=== PATIENT | female | born 1995 | race African-American/Black ===

== ENCOUNTER 2016-07-26 20:37 | Emergency (ER) | payer BC, OTHER ==
--- NOTE | 2016-07-26 21:16 | ED ---
Female Urogenital HPI - General Chief complaint: Vaginal Bleeding Stated complaint: Early /Bleeding/Cramping Hx Miscarriage Time Seen by Provider: 07/26/16 21:04 Source: patient, RN notes reviewed Mode of arrival: ambulatory Limitations: no limitations - History of Present Illness Initial comments: 21-year-old female presented emergency Department chief complaint abdominal cramping, vaginal bleeding. Patient states this started yesterday. Patient states that she recently took 2 at home test and which are positive. Patient states she cannot remember the last time she had a menstrual cycle. Patient states she is A2. Patient does not have a current COMMUNITY MANAGER. Patient denies any vomiting but states she is quite nauseated. Denies any diarrhea or constipation. Patient denies fevers chills. Patient states that she feels like she is having her menstrual cycle at this time. Last Menstrual Period: 06/24/16 - Related Data Home Medications Medication Instructions Recorded Confirmed No Known Home Medications [No 01/10/16 07/26/16 Known Home Medications] Allergies Allergy/AdvReac Type Severity Reaction Status Date / Time No Known Allergies Allergy Verified 07/26/16 21:24 Review of Systems ROS Statement: Those systems with pertinent positive or pertinent negative responses have been documented in the HPI. ROS Other: All systems not noted in ROS Statement are negative. Past Medical History Past Medical History: No Reported History History of Any Multi-Drug Resistant Organisms: None Reported Past Surgical History: No Surgical Hx Reported Past Psychological History: No Psychological Hx Reported Smoking Status: Former smoker Past Alcohol Use History: None Reported Past Drug Use History: None Reported General Exam Limitations: no limitations General appearance: alert, in no apparent distress Head exam: Present: atraumatic, normocephalic, normal inspection Respiratory exam: Present: normal lung sounds bilaterally. Absent: respiratory distress, wheezes, rales, rhonchi, stridor Cardiovascular Exam: Present: regular rate, normal rhythm, normal heart sounds. Absent: systolic murmur, diastolic murmur, rubs, gallop, clicks GI/Abdominal exam: Present: soft, normal bowel sounds. Absent: distended, tenderness, guarding, rebound, rigid Back exam: Absent: CVA tenderness (R), CVA tenderness (L) Neurological exam: Present: alert, oriented X3, CN II-XII intact Skin exam: Present: warm, dry, intact, normal color. Absent: rash Course Vital Signs 07/26/16 07/26/16 20:59 22:03 Temperature 98.0 F Pulse Rate 78 74 Respiratory 18 16 Rate Blood Pressure 119/59 116/69 O2 Sat by Pulse 99 98 Oximetry Medical Decision Making - Medical Decision Making 21-year-old female presented emergency department for vaginal bleeding or early . Patient's hCG level is 546. Ultrasound shows no acute abnormality. Patient's laboratory eyes unremarkable. Patient will be discharged with repeat hCG level. Patient did not want Jose testing including HIV syphilis and hepatitis.. Patient refused pelvic exam - Lab Data Result diagrams: 07/26/16 21:42 07/26/16 21:42 Lab Results 07/26/16 07/26/16 07/26/16 Range/Units 21:42 21:42 21:42 WBC 11.4 H (3.8-10.6) k/uL RBC 4.62 (3.80-5.40) m/uL Hgb 10.9 L (11.4-16.0) gm/dL Hct 35.0 (34.0-46.0) % MCV 75.8 L (80.0-100.0) fL MCH 23.6 L (25.0-35.0) pg MCHC 31.2 (31.0-37.0) g/dL RDW 19.2 H (11.5-15.5) % Plt Count 252 (150-450) k/uL Neutrophils % 69 % Lymphocytes % 23 % Monocytes % 5 % Eosinophils % 1 % Basophils % 0 % Neutrophils # 7.9 H (1.3-7.7) k/uL Lymphocytes # 2.7 (1.0-4.8) k/uL Monocytes # 0.6 (0-1.0) k/uL Eosinophils # 0.1 (0-0.7) k/uL Basophils # 0.0 (0-0.2) k/uL Hypochromasia Moderate Anisocytosis Slight Microcytosis Moderate Sodium 140 (137-145) mmol/L Potassium 3.6 (3.5-5.1) mmol/L Chloride 103 (98-107) mmol/L Carbon Dioxide 25 (22-30) mmol/L Anion Gap 12 mmol/L BUN 11 (7-17) mg/dL Creatinine 0.68 (0.52-1.04) mg/dL Est GFR (MDRD) Af Amer >60 (>60 ml/min/1.73 sqM) Est GFR (MDRD) Non-Af >60 (>60 ml/min/1.73 sqM) Glucose 107 H (74-99) mg/dL Calcium 9.4 (8.4-10.2) mg/dL Total Bilirubin 0.4 (0.2-1.3) mg/dL AST 26 (14-36) U/L ALT 30 (9-52) U/L Alkaline Phosphatase 62 (38-126) U/L Total Protein 7.7 (6.3-8.2) g/dL Albumin 4.5 (3.5-5.0) g/dL HCG, Quant 546.6 mIU/mL Urine Color Yellow Urine Appearance Clear (Clear) Urine pH 6.5 (5.0-8.0) Ur Specific [place] 1.023 (1.001-1.035) Urine Protein Trace H (Negative) Urine Glucose (UA) Negative (Negative) Urine Ketones Negative (Negative) Urine Blood Negative (Negative) Urine Nitrate Negative (Negative) Urine Bilirubin Negative (Negative) Urine Urobilinogen <2.0 (<2.0) mg/dL Ur Leukocyte Esterase Negative (Negative) Blood Type Blood Type Recheck 07/26/16 Range/Units 21:56 WBC (3.8-10.6) k/uL RBC (3.80-5.40) m/uL Hgb (11.4-16.0) gm/dL Hct (34.0-46.0) % MCV (80.0-100.0) fL MCH (25.0-35.0) pg MCHC (31.0-37.0) g/dL RDW (11.5-15.5) % Plt Count (150-450) k/uL Neutrophils % % Lymphocytes % % Monocytes % % Eosinophils % % Basophils % % Neutrophils # (1.3-7.7) k/uL Lymphocytes # (1.0-4.8) k/uL Monocytes # (0-1.0) k/uL Eosinophils # (0-0.7) k/uL Basophils # (0-0.2) k/uL Hypochromasia Anisocytosis Microcytosis Sodium (137-145) mmol/L Potassium (3.5-5.1) mmol/L Chloride (98-107) mmol/L Carbon Dioxide (22-30) mmol/L Anion Gap mmol/L BUN (7-17) mg/dL Creatinine (0.52-1.04) mg/dL Est GFR (MDRD) Af Amer (>60 ml/min/1.73 sqM) Est GFR (MDRD) Non-Af (>60 ml/min/1.73 sqM) Glucose (74-99) mg/dL Calcium (8.4-10.2) mg/dL Total Bilirubin (0.2-1.3) mg/dL AST (14-36) U/L ALT (9-52) U/L Alkaline Phosphatase (38-126) U/L Total Protein (6.3-8.2) g/dL Albumin (3.5-5.0) g/dL HCG, Quant mIU/mL Urine Color Urine Appearance (Clear) Urine pH (5.0-8.0) Ur Specific [place] (1.001-1.035) Urine Protein (Negative) Urine Glucose (UA) (Negative) Urine Ketones (Negative) Urine Blood (Negative) Urine Nitrate (Negative) Urine Bilirubin (Negative) Urine Urobilinogen (<2.0) mg/dL Ur Leukocyte Esterase (Negative) Blood Type O Positive Blood Type Recheck No Disposition Clinical Impression: Threatened miscarriage in early Disposition: HOME SELF-CARE Condition: Stable Instructions: Threatened Miscarriage (ED) Additional Instructions: Please return to the Emergency Department if symptoms worsen or any other concerns. Time of Disposition: 23:00
[2016-07-26 21:59] LABS: Anisocytosis Slight; Appearance,Urine Clear (Clear); Basophils % (A) 0 %; Bilirubin,Urine Negative (Negative); CH 23.3; CHCM 30.9; Eosinophils # (A) 0.1 k/uL (0-0.7); Eosinophils % (A) 1 %; Glucose,Urine (UA) Negative (Negative); HDW 2.82; HGB 10.9 gm/dL (11.4-16.0); Hypochromasia Moderate; Ketones,Urine Negative (Negative); Leukocyte Esterase,Urine Negative (Negative); Luc # (Auto) 0.16; Luc % (Auto) 1; Lymphocytes # (A) 2.7 k/uL (1.0-4.8); Lymphocytes % (A) 23 %; MCH 23.6 pg (25.0-35.0); MCHC 31.2 g/dL (31.0-37.0); MCV 75.8 fL (80.0-100.0); Mean Platelet Volume 7.6; Microcytosis Moderate; Monocytes # (A) 0.6 k/uL (0-1.0); Monocytes % (A) 5 %; Neutrophils # (A) 7.9 k/uL (1.3-7.7); Neutrophils % (A) 69 %; Nitrite,Urine Negative (Negative); PH, Urine 6.5 (5.0-8.0); Protein,Urine Trace (Negative); RBC 4.62 m/uL (3.80-5.40); RDW 19.2 % (11.5-15.5); Specific Gravity,Urine 1.023 (1.001-1.035); UA Billing (MACRO vs. MICRO) CHEM; Urobilinogen,Urine <2.0 mg/dL (<2.0); WBC 11.4 k/uL (3.8-10.6); WBC (Perox) 11.99
[2016-07-26 22:09] LABS: ALT 30 U/L (9-52); AST 26 U/L (14-36); Alkaline Phosphatase 62 U/L (38-126); Anion Gap 12 mmol/L; Blood Urea Nitrogen 11 mg/dL (7-17); Calcium 9.4 mg/dL (8.4-10.2); Carbon Dioxide 25 mmol/L (22-30); Chloride 103 mmol/L (98-107); Glucose 107 mg/dL (74-99); Non-African American GFR(MDRD) >60 (>60 ml/min/1.73 sqM); Potassium 3.6 mmol/L (3.5-5.1); Sodium 140 mmol/L (137-145); Total Bilirubin 0.4 mg/dL (0.2-1.3); Total Protein 7.7 g/dL (6.3-8.2)
[2016-07-26 22:25] LABS: HCG,Quantitative Serum 546.6 mIU/mL
[2016-07-26 22:32] VITALS: RESP 16
--- NOTE | 2016-07-26 22:50 | US ---
EXAMINATION TYPE: US OB <=14 wks transvag DATE OF EXAM: 07/26/2016 10:22 PM COMPARISON: NONE CLINICAL HISTORY: Bleeding, cramping, HX of miscarriage. EXAM PERFORMED: Transvaginal (TV) and Transabdominal (TA) EXAM MEASUREMENTS: GESTATIONAL AGE / DATING Dates by LMP: (4 weeks/4 days) EDC: 03/31/2017 Dates by Current Scan: Too early to determine MATERNAL ANATOMY Uterus: 9.2 x 6.4 x 5.9 cm Right Ovary: 2.2 x 1.4 x 1.4 cm Left Ovary: 2.8 x 1.8 x 1.4 cm Post CDS / Adnexa: free fluid in posterior cul de sac, prominent vessels seen in bilateral adnexas Presence of free fluid: cul de sac Presence of corpus luteal cyst: left ovary= 1.7 x 1.2 x 1.1 cm GESTATION / SURVEY CRL: not seen MSD: not seen Yolk Sac (normal less than 6mm): not seen IUP: No IUP seen at this time Date of LMP: 06/24/2017, A2 Beta HcG (if available): not available TECHNOLOGIST IMPRESSION: No GS, YS or CRL seen. Multiple cystic lesions seen in endometrium. Endom etrium measures 1.2 cm. Left corpus luteal cyst. Free fluid in posterior cul de sac. IMPRESSION: No evidence of intrauterine or extrauterine gestational sac. No adnexal mass. There is trace free flu id in the cul-de-sac that could be physiologic..
[2016-07-26 23:09] VITALS: BP 116/68; PULSE 78; TEMP 98
== END 2016-07-26 23:09 | disposition home or self-care (01) ==
LOC: EC 20:37
DX: O20.0 Threatened abortion (principal); N83.12 Corpus luteum cyst of left ovary; Z87.891 Personal history of nicotine dependence
CPT/HCPCS: 36415; 76801; 76817; 80053; 81003; 84702; 85025; 86900; 86901; 99284

== ENCOUNTER 2016-10-02 12:04 | Emergency (ER) | payer BC, OTHER ==
[2016-10-02 12:15] VITALS: TEMP 98.5
[2016-10-02] MEDS ORDERED: SODIUM CHLORIDE 0.9% 1,000 ML IV STA ×2 (12:34)
--- NOTE | 2016-10-02 12:37 | ED ---
General Adult HPI - General Chief complaint: Vaginal Bleeding Stated complaint: Vag bleeding Time Seen by Provider: 10/02/16 12:17 Source: patient, RN notes reviewed Mode of arrival: ambulatory Limitations: no limitations - History of Present Illness Initial comments: Patient 21-year-old female who presents emergency room today with chief complaint of increased vaginal bleeding. She does admit that bleeding started 2 days ago. She states this morning there was no bleeding she was at work and bleeding became much heavier. States this time Has slowed down. She does admit some abdominal cramping lower abdomen. Patient admits that she did have a normal last menstrual cycle earlier in the month approximately 2.5-3 weeks ago. Patient denies any other complaints or symptoms +. Patient denies any recent fever, chills, shortness of breath, chest pain, back pain, nausea or vomiting, numbness or tingling, dysuria or hematuria, constipation or diarrhea, headaches or visual changes, or any other complaints. - Related Data Home Medications Medication Instructions Recorded Confirmed No Known Home Medications [No 01/10/16 07/26/16 Known Home Medications] Allergies Allergy/AdvReac Type Severity Reaction Status Date / Time No Known Allergies Allergy Verified 07/26/16 21:24 Review of Systems ROS Statement: Those systems with pertinent positive or pertinent negative responses have been documented in the HPI. ROS Other: All systems not noted in ROS Statement are negative. Past Medical History Past Medical History: No Reported History History of Any Multi-Drug Resistant Organisms: None Reported Past Surgical History: No Surgical Hx Reported Past Psychological History: No Psychological Hx Reported Smoking Status: Former smoker Past Alcohol Use History: None Reported Past Drug Use History: None Reported General Exam - General Exam Comments Initial Comments: General: The patient is awake and alert, in no distress, and does not appear acutely ill. Eye: Pupils are equal, round and reactive to light, extra-ocular movements are intact. No nystagmus. There is normal conjunctiva bilaterally. No signs of icterus. Ears, nose, mouth and throat: There are moist mucous membranes and no oral lesions. Neck: The neck is supple, there is no tenderness or JVD. Cardiovascular: There is a regular rate and rhythm. No murmur, rub or gallop is appreciated. Respiratory: Lungs are clear to auscultation, respirations are non-labored, breath sounds are equal. No wheezes, stridor, rales, or rhonchi. Gastrointestinal: Soft, non-distended, non-tender abdomen without masses or organomegaly noted. There is no rebound or guarding present. No CVA tenderness. Bowel sounds are unremarkable. Musculoskeletal: Normal ROM, no tenderness. Strength 5/5. Sensation intact. Pulses equal bilaterally 2+. Neurological: A&O x 3. CN II-XII intact, There are no obvious motor or sensory deficits. Coordination appears grossly intact. Speech is normal. Skin: Skin is warm and dry and no rashes or lesions are noted. Psychiatric: Cooperative, appropriate mood & affect, normal judgment. Limitations: no limitations Course Vital Signs 10/02/16 10/02/16 12:13 12:38 Temperature 98.5 F Pulse Rate 143 H 101 H Respiratory 20 18 Rate Blood Pressure 103/65 109/66 O2 Sat by Pulse 100 100 Oximetry Medical Decision Making - Medical Decision Making Patient reexamined at this time shows no signs of distress. Patient did have positive test. A blood test is been added with a Rh. Patient's ultrasound official report shows some moderate free fluid in the pelvis area. No sign of ovarian torsion. No evidence of IUP off of ultrasound again unofficial report. Patient's CBC currently back at this time shows hemoglobin of 9. Patient denies any lightheadedness dizziness at this time. States vaginal bleeding is decreased. States she does have a family emergency and needs to leave at this time. Patient denies that all results are not back. She states she will sign out AMA. She is been advised to return here to the emergency room if anything increases or worsens of symptoms. - Lab Data Result diagrams: 10/02/16 12:50 Lab Results 10/02/16 10/02/16 10/02/16 Range/Units 12:50 12:50 12:50 WBC 6.1 (3.8-10.6) k/uL RBC 3.83 (3.80-5.40) m/uL Hgb 9.4 L (11.4-16.0) gm/dL Hct 30.3 L (34.0-46.0) % MCV 79.3 L (80.0-100.0) fL MCH 24.5 L (25.0-35.0) pg MCHC 30.9 L (31.0-37.0) g/dL RDW 15.3 (11.5-15.5) % Plt Count 278 (150-450) k/uL Neutrophils % 66 % Lymphocytes % 24 % Monocytes % 6 % Eosinophils % 1 % Basophils % 1 % Neutrophils # 4.0 (1.3-7.7) k/uL Lymphocytes # 1.4 (1.0-4.8) k/uL Monocytes # 0.3 (0-1.0) k/uL Eosinophils # 0.1 (0-0.7) k/uL Basophils # 0.1 (0-0.2) k/uL Hypochromasia Marked Urine Color Yellow Urine Appearance Clear (Clear) Urine pH 7.0 (5.0-8.0) Ur Specific [place] 1.018 (1.001-1.035) Urine Protein Negative (Negative) Urine Glucose (UA) Negative (Negative) Urine Ketones Negative (Negative) Urine Blood Negative (Negative) Urine Nitrite Negative (Negative) Urine Bilirubin Negative (Negative) Urine Urobilinogen <2.0 (<2.0) mg/dL Ur Leukocyte Esterase Negative (Negative) Urine HCG, Qual Detected (Not Detectd) Disposition Clinical Impression: Positive test Disposition: Left Against Medical Advice Condition: Undetermined Time of Disposition: 13:45
[2016-10-02 12:39] VITALS: BP 109/66; PULSE 101; RESP 18
[2016-10-02 13:17] LABS: Basophils # (A) 0.1 k/uL (0-0.2); Basophils % (A) 1 %; CH 23.9; CHCM 30.3; Eosinophils # (A) 0.1 k/uL (0-0.7); Eosinophils % (A) 1 %; HCT 30.3 % (34.0-46.0); HDW 3.39; HGB 9.4 gm/dL (11.4-16.0); Hypochromasia Marked; Luc # (Auto) 0.16; Luc % (Auto) 3; Lymphocytes # (A) 1.4 k/uL (1.0-4.8); Lymphocytes % (A) 24 %; MCH 24.5 pg (25.0-35.0); MCHC 30.9 g/dL (31.0-37.0); MCV 79.3 fL (80.0-100.0); Monocytes # (A) 0.3 k/uL (0-1.0); Monocytes % (A) 6 %; Neutrophils % (A) 66 %; RBC 3.83 m/uL (3.80-5.40); RDW 15.3 % (11.5-15.5); WBC 6.1 k/uL (3.8-10.6); WBC (Perox) 6.16
[2016-10-02 13:20] LABS: Appearance,Urine Clear (Clear); Bilirubin,Urine Negative (Negative); Glucose,Urine (UA) Negative (Negative); Ketones,Urine Negative (Negative); Leukocyte Esterase,Urine Negative (Negative); Nitrite,Urine Negative (Negative); Protein,Urine Negative (Negative); Specific Gravity,Urine 1.018 (1.001-1.035); UA Billing (MACRO vs. MICRO) CHEM; Urobilinogen,Urine <2.0 mg/dL (<2.0)
[2016-10-02 13:24] LABS: ALT 19 U/L (9-52); AST 24 U/L (14-36); Alkaline Phosphatase 67 U/L (38-126); Anion Gap 13 mmol/L; Blood Urea Nitrogen 11 mg/dL (7-17); Calcium 9.4 mg/dL (8.4-10.2); Carbon Dioxide 25 mmol/L (22-30); Chloride 105 mmol/L (98-107); Glucose 94 mg/dL (74-99); Non-African American GFR(MDRD) >60 (>60 ml/min/1.73 sqM); Potassium 4.4 mmol/L (3.5-5.1); Sodium 143 mmol/L (137-145); Total Bilirubin 0.3 mg/dL (0.2-1.3); Total Protein 7.7 g/dL (6.3-8.2)
--- NOTE | 2016-10-02 13:49 | US ---
EXAMINATION TYPE: US transvaginal DATE OF EXAM: 10/02/2016 1:27 PM COMPARISON: 07/26/2016 CLINICAL HISTORY: Vaginal bleeding. Pt states heavy vaginal bleeding with clots/ Pt states this is no t her normal menses TECHNIQUE: Transvaginal (TV) EXAM MEASUREMENTS: Uterus: 10.8 x 5.1 x 6.7 cm Endometrial Stripe: 2.2 cm Right Ovary: 3.1 x 2.1 x 2.5 cm Left Ovary: 3.0 x 1.9 x 1.6 cm FINDINGS: wnl 1. Uterus: Anteverted Heterogeneous 2. Endometrium: Heterogeneous, abnormally thickened, hypervascular 3. Right Ovary: wnl, dominant follicle= 1.3 cm 4. Left Ovary: wnl, dominant follicle= 1.5 cm Spectral, color and waveform doppler imaging shows good arterial and venous flow within the ovaries ; there is no evidence for ovarian torsion. 5. Bilateral Adnexa: wnl 6. Posterior cul-de-sac: wnl IMPRESSION: 1. Uterus is heterogeneous which is nonspecific and occasional be seen with diffuse fibroid change. 2. Endometrium appears thickened, hypervascular and heterogeneous. Correlate for endometrial patholog y including hyperplasia. Other endometrial processes not excluded. Correlate with beta hCG if there i s concern for . No intrauterine identified.
== END 2016-10-02 13:59 | disposition left against medical advice (07) ==
LOC: EC 12:04
DX: N93.9 Abnormal uterine and vaginal bleeding, unspecified (principal); R10.30 Lower abdominal pain, unspecified; Z87.891 Personal history of nicotine dependence
CPT/HCPCS: 36415; 76830; 80053; 81003; 81025; 84702; 85025; 86900; 86901; 87086; 93975; 96360; 99284

== ENCOUNTER 2016-12-13 16:00 | Emergency (ER) | payer OTHER ==
[2016-12-13 16:11] VITALS: TEMP 97.9
[2016-12-13] MEDS ORDERED: SODIUM CHLORIDE 0.9% 1,000 ML IV ONE (16:37)
[2016-12-13] MEDS ORDERED: KETOROLAC 30 MG/ML 1 ML VIAL IVP STA (16:37)
--- NOTE | 2016-12-13 16:41 | ED ---
Female Urogenital HPI - General Chief complaint: Vaginal Bleeding Stated complaint: Vaginal Bleeding Time Seen by Provider: 12/13/16 16:12 Source: patient, RN/MD, RN notes reviewed, old records reviewed Mode of arrival: ambulatory Limitations: no limitations - History of Present Illness Initial comments: This is a 21-year-old female presenting to the emergency Department chief complaint of severe vaginal bleeding off and on throughout the past few months. Patient reports that she had a portion in August of this year and since then her menstrual cycle had been very heavy and abnormal. Patient reports that in September she was evaluated in the emergency room and was told that she had a positive test and was bleeding at that time. Patient reports that over the past week she's been passing clots the size of her head. Patient reports that he is concerned she may be miscarrying or something else could be the cause of the inner bleeding. Patient reports that she's had no fever or chills. She reports that she does have some cramping pain in her lower back. She reports that she does not have an YARD BRAKEMAN. She states that she sometimes feels lightheaded. - Related Data Previous Rx's Medication Instructions Recorded Ferrous Sulfate [Feosol] 325 mg PO DAILY #30 tab 12/13/16 Allergies Allergy/AdvReac Type Severity Reaction Status Date / Time No Known Allergies Allergy Verified 12/13/16 16:40 Review of Systems ROS Statement: Those systems with pertinent positive or pertinent negative responses have been documented in the HPI. ROS Other: All systems not noted in ROS Statement are negative. Past Medical History Past Medical History: No Reported History History of Any Multi-Drug Resistant Organisms: None Reported Past Surgical History: No Surgical Hx Reported Past Psychological History: No Psychological Hx Reported Smoking Status: Former smoker Past Alcohol Use History: None Reported Past Drug Use History: None Reported General Exam - General Exam Comments Initial Comments: This is a 21-year-old female. No acute distress. Limitations: no limitations General appearance: alert, in no apparent distress Head exam: Present: atraumatic, normocephalic, normal inspection Eye exam: Present: normal appearance, PERRL, EOMI. Absent: scleral icterus, conjunctival injection, periorbital swelling ENT exam: Present: normal exam, mucous membranes moist Neck exam: Present: normal inspection Respiratory exam: Present: normal lung sounds bilaterally. Absent: respiratory distress, wheezes, rales, rhonchi, stridor Cardiovascular Exam: Present: regular rate, normal rhythm, normal heart sounds. Absent: systolic murmur, diastolic murmur, rubs, gallop, clicks GI/Abdominal exam: Present: soft, normal bowel sounds. Absent: distended, tenderness, guarding, rebound, rigid External exam: Present: normal external exam Speculum exam: Present: vaginal bleeding. Absent: normal speculum exam By manual exam: Present: uterine enlargement, uterine tenderness. Absent: normal by manual exam, cervical motion tenderness, adnexal tenderness, adnexal mass Extremities exam: Present: normal inspection, full ROM, normal capillary refill. Absent: tenderness, pedal edema, joint swelling, calf tenderness Back exam: Present: normal inspection Neurological exam: Present: alert, oriented X3, CN II-XII intact Psychiatric exam: Present: normal affect, normal mood Skin exam: Present: warm, dry, intact, normal color. Absent: rash Course Vital Signs 12/13/16 12/13/16 12/13/16 16:08 19:25 20:16 Temperature 97.9 F Pulse Rate 90 86 66 Respiratory 18 18 16 Rate Blood Pressure 123/66 96/55 105/56 O2 Sat by Pulse 99 100 98 Oximetry Medical Decision Making - Medical Decision Making 21-year-old female with diffuse vaginal bleeding since September 09. Patient reports that every she'll pass large clots and occasionally have some likely. Patient's hemoglobin is 8.0 at this time. Ultrasound does show diffusely thickened endometrium measuring 2.5 cm with complex fluid possibility of endometrial hyperplasia or large polyp. Correlation with 80 she is recommended. There is evidence of small amount of free fluid. Nonvisualization ovaries again correlation for the hCG is recommended to rule out ectopic . HCG is also negative. Discussed the findings with Dr. Singh was a time and consult Dr. Gregory the on-call YARD BRAKEMAN. He discussed that she needs to follow-up with her oncologist to perform the portion [place] from August. Also that if she cannot get a hold mention is to follow-up with him in the office early next week. I will place the patient on high dose iron. Discussed that she needs to return to the emergency department if any alarming signs or symptoms occur. Discussed rest and hydration. Patient understands treatment plan will comply. - Lab Data Result diagrams: 12/13/16 17:15 12/13/16 17:15 Lab Results 12/13/16 12/13/16 12/13/16 Range/Units 17:15 17:15 17:15 WBC 7.0 (3.8-10.6) k/uL RBC 3.81 (3.80-5.40) m/uL Hgb 8.0 L (11.4-16.0) gm/dL Hct 28.0 L (34.0-46.0) % MCV 73.5 L (80.0-100.0) fL MCH 21.1 L (25.0-35.0) pg MCHC 28.7 L (31.0-37.0) g/dL RDW 16.2 H (11.5-15.5) % Plt Count 271 (150-450) k/uL Neutrophils % 65 % Lymphocytes % 27 % Monocytes % 5 % Eosinophils % 1 % Basophils % 1 % Neutrophils # 4.6 (1.3-7.7) k/uL Lymphocytes # 1.9 (1.0-4.8) k/uL Monocytes # 0.3 (0-1.0) k/uL Eosinophils # 0.1 (0-0.7) k/uL Basophils # 0.0 (0-0.2) k/uL Hypochromasia Marked Poikilocytosis Slight Anisocytosis Slight Microcytosis Slight Sodium 141 (137-145) mmol/L Potassium 3.6 (3.5-5.1) mmol/L Chloride 107 (98-107) mmol/L Carbon Dioxide 23 (22-30) mmol/L Anion Gap 11 mmol/L BUN 9 (7-17) mg/dL Creatinine 0.60 (0.52-1.04) mg/dL Est GFR (MDRD) Af Amer >60 (>60 ml/min/1.73 sqM) Est GFR (MDRD) Non-Af >60 (>60 ml/min/1.73 sqM) Glucose 111 H (74-99) mg/dL Calcium 9.1 (8.4-10.2) mg/dL HCG, Quant <2.4 mIU/mL Urine Color Urine Appearance (Clear) Urine pH (5.0-8.0) Ur Specific [place] (1.001-1.035) Urine Protein (Negative) Urine Glucose (UA) (Negative) Urine Ketones (Negative) Urine Blood (Negative) Urine Nitrite (Negative) Urine Bilirubin (Negative) Urine Urobilinogen (<2.0) mg/dL Ur Leukocyte Esterase (Negative) Urine RBC (0-5) /hpf Urine WBC (0-5) /hpf Ur Squamous Epith Cells (0-4) /hpf Calcium Oxalate Crystal (None) /hpf Urine Mucus (None) /hpf Urine HCG, Qual (Not Detectd) Trichomonas Ag (Rapid) (Negative) Blood Type O Positive Blood Type Recheck No 12/13/16 12/13/16 12/13/16 Range/Units 18:00 18:00 18:00 WBC (3.8-10.6) k/uL RBC (3.80-5.40) m/uL Hgb (11.4-16.0) gm/dL Hct (34.0-46.0) % MCV (80.0-100.0) fL MCH (25.0-35.0) pg MCHC (31.0-37.0) g/dL RDW (11.5-15.5) % Plt Count (150-450) k/uL Neutrophils % % Lymphocytes % % Monocytes % % Eosinophils % % Basophils % % Neutrophils # (1.3-7.7) k/uL Lymphocytes # (1.0-4.8) k/uL Monocytes # (0-1.0) k/uL Eosinophils # (0-0.7) k/uL Basophils # (0-0.2) k/uL Hypochromasia Poikilocytosis Anisocytosis Microcytosis Sodium (137-145) mmol/L Potassium (3.5-5.1) mmol/L Chloride (98-107) mmol/L Carbon Dioxide (22-30) mmol/L Anion Gap mmol/L BUN (7-17) mg/dL Creatinine (0.52-1.04) mg/dL Est GFR (MDRD) Af Amer (>60 ml/min/1.73 sqM) Est GFR (MDRD) Non-Af (>60 ml/min/1.73 sqM) Glucose (74-99) mg/dL Calcium (8.4-10.2) mg/dL HCG, Quant mIU/mL Urine Color Yellow Urine Appearance Cloudy H (Clear) Urine pH 6.0 (5.0-8.0) Ur Specific [place] 1.035 (1.001-1.035) Urine Protein 1+ H (Negative) Urine Glucose (UA) Negative (Negative) Urine Ketones Trace H (Negative) Urine Blood Moderate H (Negative) Urine Nitrite Negative (Negative) Urine Bilirubin Negative (Negative) Urine Urobilinogen 2.0 (<2.0) mg/dL Ur Leukocyte Esterase Moderate H (Negative) Urine RBC 60 H (0-5) /hpf Urine WBC 10 H (0-5) /hpf Ur Squamous Epith Cells 5 H (0-4) /hpf Calcium Oxalate Crystal Few H (None) /hpf Urine Mucus Many H (None) /hpf Urine HCG, Qual Not Detected (Not Detectd) Trichomonas Ag (Rapid) Negative (Negative) Blood Type Blood Type Recheck - Radiology Data Radiology results: report reviewed Diffuse and uniformly thickened endometrium measuring 2.5 cm with surrounding complex fluid abutting the junctional zone. Direct visualization and sampling are recommended as differential diagnosis for endometrial mass/carcinoma/ endometrial hyperplasia or large endometrial polyp. Correlation with beta hCG recommended for a premenopausal female. Additionally evaluation for cervical stenosis is recommended as intra-abdominal content may represent evolution of repeated hemorrhage/different phases of blood products. Small amount of free fluid. Nonvisualization of the ovaries again correlation patient is recommended to rule out ectopic . Disposition Clinical Impression: Menorrhagia with irregular cycle Disposition: HOME SELF-CARE Condition: Good Instructions: Menstruation (ED) Additional Instructions: Patient advised to take the iron supplements. Follow-up with your primary care physician and the physician in [place] who initially deviated the [facility] so. Patient also should call Dr. Gregory if he cannot get a hold of your [place] physician on Saturday. Return to the emergency department if any alarming signs or symptoms occur. Prescriptions: Ferrous Sulfate [Feosol] 325 mg PO DAILY #30 tab Referrals: None,Stated [Primary Care Provider] - 1-2 days Caleb Sanchez DO [Doctor of Osteopathic Medicine] - 1-2 days Time of Disposition: 20:06
[2016-12-13] MEDS ORDERED: ACETAMINOPHEN TAB 500 MG TAB PO STA (17:30)
--- NOTE | 2016-12-13 18:15 | US ---
EXAMINATION TYPE: US transvaginal DATE OF EXAM: 12/13/2016 COMPARISON: US CLINICAL HISTORY: pain. Heavy bleeding and pelvic cramping x couple months, 3, para 1, miscar riage 1, 1 TECHNIQUE: Transvaginal (TV) Date of LMP: Patient unsure EXAM MEASUREMENTS: Uterus: 11.5 x 5.7 x 6.8 cm Endometrial Stripe: 3.9 cm Right Ovary: not seen Left Ovary: not seen 1. Uterus: anteverted, enlarged at 11.5cm 2. Endometrium: thickened at 3.9cm with septated fluid within and a 7.0 x 2.5 x 3.6cm hypoechoic non -vascular area within endo 3. Right Ovary: not seen 4. Left Ovary: not seen 5. Bilateral Adnexa: wnl 6. Posterior cul-de-sac: small amount of free fluid Patient in a lot of pain during exam, non-visualization of bilateral ovaries and limited evaluation of bilateral adnexa due to patient unable to withstand the pressure of transvaginal probe. IMPRESSION: 1. Diffuse and uniformly thickened endometrium measuring up to 2.5 cm with surrounding complex fluid abutting the junctional zone. Direct visualization and sampling are recommended as differential diagn osis is for endometrial mass/carcinoma, endometrial hyperplasia or large endometrial polyp. Correlati on with beta hCG's recommended in this premenopausal female. Additionally evaluation for cervical mimi nosis is recommended as intraendometrial contents may represent evolution of repeated hemorrhage/diff erent phases of blood products. 2. Small amount of free fluid. 3. Nonvisualization of the ovaries. Again correlation with beta hCG is recommended to rule out ectopi c .
[2016-12-13 18:22] LABS: Appearance,Urine Cloudy (Clear); Bilirubin,Urine Negative (Negative); Calcium Oxalate Crystals,Urine Few /hpf; Glucose,Urine (UA) Negative (Negative); Ketones,Urine Trace (Negative); Leukocyte Esterase,Urine Moderate (Negative); Mucus,Urine Many /hpf; Nitrite,Urine Negative (Negative); Particle Count 9069; Protein,Urine 1+ (Negative); RBC,Urine 60 /hpf (0-5); Specific Gravity,Urine 1.035 (1.001-1.035); Squamous Epithelial Cell,Urine 5 /hpf (0-4); UA Billing (MACRO vs. MICRO) MICRO; WBC,Urine 10 /hpf (0-5)
[2016-12-13] MEDS ORDERED: MORPHINE SULFATE 4 MG/ML SYRINGE IVP STA (18:47)
[2016-12-13 18:52] LABS: Anisocytosis Slight; Basophils % (A) 1 %; CH 20.6; CHCM 28.1; Eosinophils # (A) 0.1 k/uL (0-0.7); Eosinophils % (A) 1 %; HDW 3.51; Hypochromasia Marked; Luc # (Auto) 0.18; Luc % (Auto) 3; Lymphocytes # (A) 1.9 k/uL (1.0-4.8); Lymphocytes % (A) 27 %; MCH 21.1 pg (25.0-35.0); MCHC 28.7 g/dL (31.0-37.0); MCV 73.5 fL (80.0-100.0); Mean Platelet Volume 6.9; Microcytosis Slight; Monocytes # (A) 0.3 k/uL (0-1.0); Monocytes % (A) 5 %; Neutrophils # (A) 4.6 k/uL (1.3-7.7); Neutrophils % (A) 65 %; Poikilocytosis Slight; RBC 3.81 m/uL (3.80-5.40); RDW 16.2 % (11.5-15.5); WBC (Perox) 7.24
[2016-12-13 19:00] LABS: Anion Gap 11 mmol/L; Blood Urea Nitrogen 9 mg/dL (7-17); Calcium 9.1 mg/dL (8.4-10.2); Carbon Dioxide 23 mmol/L (22-30); Chloride 107 mmol/L (98-107); Glucose 111 mg/dL (74-99); Non-African American GFR(MDRD) >60 (>60 ml/min/1.73 sqM); Potassium 3.6 mmol/L (3.5-5.1); Sodium 141 mmol/L (137-145)
[2016-12-13 19:17] LABS: HCG,Quantitative Serum <2.4 mIU/mL
[2016-12-13 20:17] VITALS: BP 105/56; PULSE 66; RESP 16
== END 2016-12-13 20:16 | disposition home or self-care (01) ==
LOC: EC 16:00
DX: N92.6 Irregular menstruation, unspecified (principal); Z53.20 Procedure and treatment not carried out because of patient's decision for unspecified reasons; Z87.891 Personal history of nicotine dependence
CPT/HCPCS: 36415; 76830; 80048; 81001; 81025; 84702; 85025; 86900; 86901; 87070; 87205; 87491; 87591; 87808; 96360; 99285

== ENCOUNTER 2016-12-21 11:28 | Day surgery (SDC) | payer OTHER ==
[2016-12-20 09:06] VITALS: BMI 21.5
[~2016-12-21 11:28] MED LIST: DEXAMETHASONE SOD PHOSPHATE 10 MG/ML 1 ML VIAL IV ONE; LACTATED RINGERS 1,000 ML IV SCH; LIDOCAINE 1% 20 ML VIAL (10MG/ML) FOR IV START INTRADERMA PRN; MIDAZOLAM 2 MG/2 ML VIAL IV PRN; ONDANSETRON 4 MG/2 ML VIAL IVP ONE; Pre Op ABX Message 1 EACH MISC MISCELLANE ONE; SCOPOLAMINE 1.5MG/72HR PATCH TRANSDERM ONE
[2016-12-21] MEDS ORDERED: LACTATED RINGERS 1,000 ML IV ONE (12:09)
--- NOTE | 2016-12-21 12:22 | P.HPOB ---
History of Present Illness H&P Date: 12/21/16 Chief Complaint: Menorrhagia following elective Patient is a 24-year-old female who had a medical in August. Since that time she's had persistent heavy vaginal bleeding with very large clots. Some for clots have been in the area of grapefruit or slightly larger. This is been going on estrogen see noted for almost 4 months. Her hemoglobin is low approximately 8. She is on iron supplement for same. She did not notify the place where she had the elective AB and is unclear if there is still residual tissue that is present. Betas initially remained elevated for a while her last baby hCG was negative. She is scheduled for a D&C with hysteroscopy to rule out other forms of pathology and hopefully slow her bleeding down significantly. Have her back in the office in approximately 1 week to 10 days and will plan to decide long-term treatment plan at that point. Risks/benefits/ alternatives to this procedure were discussed with the patient in detail and all questions are answered for her prior to proceeding to the operating room. On physical exam vital signs are stable and afebrile. Heart regular, lungs clear, extremities without pain. Pelvic exam was unremarkable. Abdomen soft positive bowel sounds are noted. Assessment menorrhagia status post post elective AB. Plan D&C hysteroscopy Past Medical History Past Medical History: No Reported History Additional Past Medical History / Comment(s): irregular periods History of Any Multi-Drug Resistant Organisms: None Reported Past Surgical History: No Surgical Hx Reported Past Anesthesia/Blood Transfusion Reactions: No Reported Reaction Additional Past Anesthesia/Blood Transfusion Reaction / Comment(s): pt states has never received anesthesia Past Psychological History: No Psychological Hx Reported Smoking Status: Never smoker Past Alcohol Use History: None Reported Past Drug Use History: None Reported - Past Family History Mother Family Medical History: No Reported History Medications and Allergies Allergies Allergy/AdvReac Type Severity Reaction Status Date / Time No Known Allergies Allergy Verified 12/20/16 08:55 Exam Osteopathic Statement: *. No significant issues noted on an osteopathic structural exam other than those noted in the History and Physical/Consult. - Vital Signs Vital signs: Vital Signs Temp Pulse Resp BP Pulse Ox 12/21/16 11:55 98.3 F 95 18 113/71 99
[2016-12-21] MEDS ORDERED: MIDAZOLAM 2 MG/2 ML VIAL ONE (12:28)
[2016-12-21] MEDS ORDERED: LIDOCAINE 1% INJ 10MG/ML (20 ML MDV) ONE (12:28)
[2016-12-21] MEDS ORDERED: PROPOFOL 10 MG/ML 20 ML VIAL IV ONE (12:28)
[2016-12-21] MEDS ORDERED: fentaNYL (PF) 50 MCG/ML 2 ML AMP ONE (12:28)
[2016-12-21] MEDS ORDERED: KETOROLAC 30 MG/ML 1 ML VIAL ONE (12:28)
--- NOTE | 2016-12-21 12:51 | P.OP ---
Date of Procedure: 12/21/16 Preoperative Diagnosis: Menorrhagia Postoperative Diagnosis: Same Procedure(s) Performed: Dilation and curettage with hysteroscopy Implants: Anesthesia: DOMA Surgeon: Caleb Sanchez Estimated Blood Loss (ml): 3 Pathology: other (Uterine curettings) Condition: stable Disposition: same day Indications for Procedure: Operative Findings: Tissue pathology pending Description of Procedure: Patient states the operating suite where a general anesthetic was found be adequate. She was prepped and draped in the normal sterile fashion placed in dorsal lithotomy position. Initially a weighted speculum was inserted into the vagina and the anterior lip of the cervix was identified and grasped with a single-tooth tenaculum. Uterus was then sounded to 8 cm and cervix was dilated. Camera was inserted. Posterior wall of the uterus had one small area where there was tissue however the remainder of the uterus appeared unremarkable. Once this was accomplished camera was removed and sharp curettings of were obtained. All tissues collected placed on Telfa sent to pathology for evaluation. Once this was accomplished instruments were removed sponge, lap, needle counts were all correct 2 and patient was taken to the recovery room in stable and satisfactory condition. Plan - Discharge Summary New Discharge Prescriptions: New Ibuprofen [Motrin] 600 mg PO Q6HR PRN #30 tab PRN Reason: Pain No Action Ferrous Sulfate [Feosol] 325 mg PO DAILY #30 tab Discharge Medication List Ferrous Sulfate [Feosol] 325 mg PO DAILY #30 tab 12/13/16 [Rx] Ibuprofen [Motrin] 600 mg PO Q6HR PRN #30 tab 12/21/16 [Rx] Follow up Appointment(s)/Referral(s): Caleb Sanchez DO [Doctor of Osteopathic Medicine] - 10 Days Activity/Diet/Wound Care/Special Instructions: , Limit stairs and driving and pelvic rest. If any high temperatures, heavy bleeding, or severe pain call my office Discharge Disposition: HOME SELF-CARE
[2016-12-21 13:05] VITALS: RESP 16; TEMP 98
[2016-12-21] MEDS: HYDROmorphone 1 MG/ML 1 ML SYRINGE IVP PRN ×2 (13:14→13:25)
[2016-12-21 14:42] VITALS: BP 104/61; PULSE 56
== END 2016-12-21 15:26 | disposition home or self-care (01) ==
LOC: OR 11:28
PROVIDERS: ATTEND Obstetrics & Gynecology
DX: N85.9 Noninflammatory disorder of uterus, unspecified (principal); N92.0 Excessive and frequent menstruation with regular cycle; F17.200 Nicotine dependence, unspecified, uncomplicated
CPT/HCPCS: 58558; 81025; 88305; 88342; 88341; J2250; J1100; J2405; J2001; J3010; J1885; J1170; J2704

== ENCOUNTER 2017-08-30 21:03 | Emergency (ER) | payer OTHER ==
[2017-08-30 21:24] VITALS: TEMP 98
[2017-08-30] MEDS ORDERED: SODIUM CHLORIDE 0.9% 500 ML IV STA (21:54)
[2017-08-30] MEDS ORDERED: METOCLOPRAMIDE 5 MG/ML 2 ML VIAL IVP STA (21:54)
[2017-08-30] MEDS ORDERED: diphenhydrAMINE 50 MG/ML 1 ML VIAL IVP STA (21:54)
[2017-08-30] MEDS ORDERED: SODIUM CHLORIDE 0.9% 1,000 ML IV STA (21:54)
--- NOTE | 2017-08-30 21:57 | ED ---
Nausea/Vomiting/Diarrhea HPI - General Chief complaint: Nausea/Vomiting/Diarrhea Stated complaint: Syncope Time Seen by Provider: 08/30/17 21:29 Source: patient Mode of arrival: ambulatory Limitations: no limitations - History of Present Illness Initial comments: 22-year-old female patient presented to the emergency department today for evaluation of vomiting, diarrhea, and abdominal cramping 2 days. Patient states that she did have a positive home test 2 weeks ago. Last menstrual period was [id number]. Patient is A2 with two spontaneous abortions. She did have a D&C last summer for the last miscarriage. Patient states that she has been having a large amount of thick white vaginal discharge. Patient states that she has had bacterial vaginosis before and she had this similar discharge. She denies any vaginal bleeding. Denies any hematuria, dysuria, urinary frequency, urinary urgency. States that she has been continuously vomiting and unable to keep down any food or fluids. She denies any sick contacts. Patient denies any recent rash, fever, chills, shortness breath, chest pain, back pain, numbness, tingling, dizziness, weakness , headache, visual changes, or any other complaints. She has not established care. - Related Data Previous Rx's Medication Instructions Recorded Metoclopramide [Reglan] 10 mg PO Q8H #15 tab 08/31/17 Allergies Allergy/AdvReac Type Severity Reaction Status Date / Time No Known Allergies Allergy Verified 08/30/17 21:43 Review of Systems ROS Statement: Those systems with pertinent positive or pertinent negative responses have been documented in the HPI. ROS Other: All systems not noted in ROS Statement are negative. Past Medical History Past Medical History: No Reported History Additional Past Medical History / Comment(s): irregular periods History of Any Multi-Drug Resistant Organisms: None Reported Past Surgical History: No Surgical Hx Reported Past Anesthesia/Blood Transfusion Reactions: No Reported Reaction Additional Past Anesthesia/Blood Transfusion Reaction / Comment(s): pt states has never received anesthesia Past Psychological History: No Psychological Hx Reported Smoking Status: Never smoker Past Alcohol Use History: None Reported Past Drug Use History: None Reported - Past Family History Mother Family Medical History: No Reported History General Exam Limitations: no limitations General appearance: alert, in no apparent distress, other (Social well-developed , well-nourished adult female patient in no acute distress. Vital signs upon presentation are temperature 98.0F, pulse 90, respirations 18, blood pressure 130/80, pulse ox 98% on room air.) Eye exam: Present: normal appearance, PERRL, EOMI. Absent: scleral icterus, conjunctival injection, periorbital swelling ENT exam: Present: normal exam, normal oropharynx, mucous membranes moist Respiratory exam: Present: normal lung sounds bilaterally. Absent: respiratory distress, wheezes, rales, rhonchi, stridor Cardiovascular Exam: Present: regular rate, normal rhythm, normal heart sounds. Absent: systolic murmur, diastolic murmur, rubs, gallop, clicks GI/Abdominal exam: Present: soft, normal bowel sounds. Absent: distended, tenderness, guarding, rebound, rigid External exam: Present: normal external exam Speculum exam: Present: vaginal discharge (Thin white vaginal discharge). Absent: normal speculum exam, cervical discharge, vaginal bleeding By manual exam: Present: normal by manual exam Back exam: Present: normal inspection. Absent: CVA tenderness (R), CVA tenderness (L) Neurological exam: Present: alert, oriented X3, CN II-XII intact Psychiatric exam: Present: normal affect, normal mood Skin exam: Present: warm, dry, intact, normal color. Absent: rash Course Vital Signs 08/30/17 08/31/17 08/31/17 21:22 00:38 02:15 Temperature 98 F 98 F Pulse Rate 90 87 85 Respiratory 18 20 16 Rate Blood Pressure 130/80 135/78 110/67 O2 Sat by Pulse 98 98 99 Oximetry 08/31/17 04:03 Temperature Pulse Rate 93 Respiratory 17 Rate Blood Pressure 110/54 O2 Sat by Pulse 99 Oximetry - Reevaluation(s) Reevaluation #1: 08/31/17 02:03 Patient has received 2 L of normal saline, Reglan, Benadryl, and vitamin B6 via IV for vomiting. Patient continues to have vomiting. She did attempt to eat crackers and have ice chips however she was unable to hold this down. We will give her a liter of the dextrose 5% with 0.45 normal saline. We will evaluate her after this is complete. Medical Decision Making - Medical Decision Making 22-year-old female patient presented to the emergency department today for complaints of vomiting and diarrhea 2 days. Physical examination is unremarkable. Patient is 7 weeks . We did administer IV Reglan and Benadryl, patient continued to have vomiting after this. We gave vitamin B6 through the IV. Patient continued to feel nauseous and unable to hold down any crackers or water. Patient was given 2 L of D5 0.45. She does feel somewhat better after receiving this. She was able to hold down Jell-O. She'll be given an additional dose of Reglan and discharged home. She is instructed to follow-up with her OB for reevaluation as soon as possible. She will be given a prescription for reglan. She is instructed to follow-up with her primary care physician for recheck in 1-2 days. She is instructed to return here immediate for any new, worsening, or concerning symptoms. She verbalizes understanding and agrees with this plan. - Lab Data Result diagrams: 08/30/17 22:12 08/30/17 22:12 Lab Results 08/30/17 08/30/17 08/30/17 Range/Units 22:12 22:12 22:13 WBC 11.8 H (3.8-10.6) k/uL RBC 4.84 (3.80-5.40) m/uL Hgb 12.4 (11.4-16.0) gm/dL Hct 41.2 (34.0-46.0) % MCV 85.1 (80.0-100.0) fL MCH 25.7 (25.0-35.0) pg MCHC 30.2 L (31.0-37.0) g/dL RDW 17.5 H (11.5-15.5) % Plt Count 261 (150-450) k/uL Neutrophils % 78 % Lymphocytes % 16 % Monocytes % 5 % Eosinophils % 1 % Basophils % 0 % Neutrophils # 9.2 H (1.3-7.7) k/uL Lymphocytes # 1.9 (1.0-4.8) k/uL Monocytes # 0.6 (0-1.0) k/uL Eosinophils # 0.1 (0-0.7) k/uL Basophils # 0.0 (0-0.2) k/uL Anisocytosis Slight Sodium 138 (137-145) mmol/L Potassium 3.7 (3.5-5.1) mmol/L Chloride 103 (98-107) mmol/L Carbon Dioxide 22 (22-30) mmol/L Anion Gap 13 mmol/L BUN 7 (7-17) mg/dL Creatinine 0.52 (0.52-1.04) mg/dL Est GFR (MDRD) Af Amer >60 (>60 ml/min/1.73 sqM) Est GFR (MDRD) Non-Af >60 (>60 ml/min/1.73 sqM) Glucose 82 (74-99) mg/dL Calcium 10.1 (8.4-10.2) mg/dL Total Bilirubin 0.5 (0.2-1.3) mg/dL AST 18 (14-36) U/L ALT 24 (9-52) U/L Alkaline Phosphatase 64 (38-126) U/L Total Protein 7.3 (6.3-8.2) g/dL Albumin 4.2 (3.5-5.0) g/dL Amylase 70 (30-110) U/L Lipase 36 (23-300) U/L HCG, Quant 77237.3 mIU/mL Urine Color Yellow Urine Appearance Cloudy H (Clear) Urine pH 6.0 (5.0-8.0) Ur Specific [place] 1.028 (1.001-1.035) Urine Protein 1+ H (Negative) Urine Glucose (UA) Negative (Negative) Urine Ketones 4+ H (Negative) Urine Blood Negative (Negative) Urine Nitrite Negative (Negative) Urine Bilirubin Negative (Negative) Urine Urobilinogen 2.0 (<2.0) mg/dL Ur Leukocyte Esterase Moderate H (Negative) Urine RBC 2 (0-5) /hpf Urine WBC 5 (0-5) /hpf Ur Squamous Epith Cells 18 H (0-4) /hpf Urine Mucus Many H (None) /hpf Trichomonas Ag (Rapid) (Negative) 08/31/17 Range/Units 01:44 WBC (3.8-10.6) k/uL RBC (3.80-5.40) m/uL Hgb (11.4-16.0) gm/dL Hct (34.0-46.0) % MCV (80.0-100.0) fL MCH (25.0-35.0) pg MCHC (31.0-37.0) g/dL RDW (11.5-15.5) % Plt Count (150-450) k/uL Neutrophils % % Lymphocytes % % Monocytes % % Eosinophils % % Basophils % % Neutrophils # (1.3-7.7) k/uL Lymphocytes # (1.0-4.8) k/uL Monocytes # (0-1.0) k/uL Eosinophils # (0-0.7) k/uL Basophils # (0-0.2) k/uL Anisocytosis Sodium (137-145) mmol/L Potassium (3.5-5.1) mmol/L Chloride (98-107) mmol/L Carbon Dioxide (22-30) mmol/L Anion Gap mmol/L BUN (7-17) mg/dL Creatinine (0.52-1.04) mg/dL Est GFR (MDRD) Af Amer (>60 ml/min/1.73 sqM) Est GFR (MDRD) Non-Af (>60 ml/min/1.73 sqM) Glucose (74-99) mg/dL Calcium (8.4-10.2) mg/dL Total Bilirubin (0.2-1.3) mg/dL AST (14-36) U/L ALT (9-52) U/L Alkaline Phosphatase (38-126) U/L Total Protein (6.3-8.2) g/dL Albumin (3.5-5.0) g/dL Amylase (30-110) U/L Lipase (23-300) U/L HCG, Quant mIU/mL Urine Color Urine Appearance (Clear) Urine pH (5.0-8.0) Ur Specific [place] (1.001-1.035) Urine Protein (Negative) Urine Glucose (UA) (Negative) Urine Ketones (Negative) Urine Blood (Negative) Urine Nitrite (Negative) Urine Bilirubin (Negative) Urine Urobilinogen (<2.0) mg/dL Ur Leukocyte Esterase (Negative) Urine RBC (0-5) /hpf Urine WBC (0-5) /hpf Ur Squamous Epith Cells (0-4) /hpf Urine Mucus (None) /hpf Trichomonas Ag (Rapid) Negative (Negative) - Radiology Data Radiology results: report reviewed, image reviewed Ultrasound was obtained to evaluate the fetus. Report was reviewed in its entirety. Heart rate was 151. Impression by Dr. Cain shows gestational age is 7 weeks 1 day. Estimated date of delivery is 04/17/2018. I see no complicating process. Disposition Clinical Impression: Hyperemesis gravidarum Disposition: HOME SELF-CARE Condition: Good Instructions: Hyperemesis Gravidarum (ED), Acute Nausea and Vomiting (ED) Additional Instructions: Start with clear liquid diet and advance as tolerated. Take medications as directed. Follow up with your OB as soon as possible. Return here immediately for any new, worsening, or concerning symptoms. Prescriptions: Metoclopramide [Reglan] 10 mg PO Q8H #15 tab Referrals: None,Stated [Primary Care Provider] - 1-2 days Time of Disposition: 04:10
[2017-08-30 22:22] LABS: Anisocytosis Slight; Basophils % (A) 0 %; Eosinophils # (A) 0.1 k/uL (0-0.7); Eosinophils % (A) 1 %; HCT 41.2 % (34.0-46.0); HGB 12.4 gm/dL (11.4-16.0); Lymphocytes # (A) 1.9 k/uL (1.0-4.8); Lymphocytes % (A) 16 %; MCH 25.7 pg (25.0-35.0); MCHC 30.2 g/dL (31.0-37.0); MCV 85.1 fL (80.0-100.0); Mean Platelet Volume 6.7; Monocytes # (A) 0.6 k/uL (0-1.0); Monocytes % (A) 5 %; Neutrophils # (A) 9.2 k/uL (1.3-7.7); Neutrophils % (A) 78 %; Platelet Count 261 k/uL (150-450); RBC 4.84 m/uL (3.80-5.40); RDW 17.5 % (11.5-15.5); WBC 11.8 k/uL (3.8-10.6)
[2017-08-30 22:28] LABS: ALT 24 U/L (9-52); AST 18 U/L (14-36); Albumin 4.2 g/dL (3.5-5.0); Alkaline Phosphatase 64 U/L (38-126); Amylase 70 U/L (30-110); Anion Gap 13 mmol/L; Blood Urea Nitrogen 7 mg/dL (7-17); Calcium 10.1 mg/dL (8.4-10.2); Carbon Dioxide 22 mmol/L (22-30); Chloride 103 mmol/L (98-107); Glucose 82 mg/dL (74-99); Lipase 36 U/L (23-300); Potassium 3.7 mmol/L (3.5-5.1); Sodium 138 mmol/L (137-145); Total Bilirubin 0.5 mg/dL (0.2-1.3); Total Protein 7.3 g/dL (6.3-8.2)
[2017-08-30 22:32] LABS: Appearance,Urine Cloudy (Clear); Bilirubin,Urine Negative (Negative); Blood,Urine Negative (Negative); Color,Urine Yellow; Glucose,Urine (UA) Negative (Negative); Ketones,Urine 4+ (Negative); Leukocyte Esterase,Urine Moderate (Negative); Mucus,Urine Many /hpf; Nitrite,Urine Negative (Negative); Protein,Urine 1+ (Negative); RBC,Urine 2 /hpf (0-5); Specific Gravity,Urine 1.028 (1.001-1.035); Squamous Epithelial Cell,Urine 18 /hpf (0-4); WBC,Urine 5 /hpf (0-5)
--- NOTE | 2017-08-30 22:47 | US ---
EXAMINATION TYPE: US OB <= 14 wk fetus DATE OF EXAM: 08/30/2017 COMPARISON: NONE CLINICAL HISTORY: Pain. Nausea, vomiting, no bleeding EXAM PERFORMED: Transabdominal (TA) EXAM MEASUREMENTS: GESTATIONAL AGE / DATING Dates by LMP: (7 weeks/3 days) EDC: 04/15/2018 Dates by Current Scan for: (7 weeks/1 days) EDC: 04/17/2018 MATERNAL ANATOMY Uterus: 9.9 x 6.4 x 6.0 cm Right Ovary: 2.8 x 1.9 x 1.7 cm Left Ovary: 2.6 x 1.7 x 1.5 cm Post CDS / Adnexa: no free fluid Presence of free fluid: no Presence of corpus luteal cyst: no Presence of subchorionic bleed: no GESTATION / SURVEY CRL: 1.0 cm (7 weeks/1 days) MSD: seen, not measured Yolk Sac (normal less than 6mm): 3.2 mm Heart Rate: 151 bpm Rhythm: Normal IUP: Viable IUP Date of LMP: 07/09/2017, Beta HcG (if available): Not available at this time Single live IUP measuring 7 weeks 3 days IMPRESSION: The ultrasound gestational age is 7 weeks 1 day. The ZACHARIAH is 04/17/2018. I see no complicating process.
[2017-08-30 23:20] LABS: HCG,Quantitative Serum 81737.3 mIU/mL
[2017-08-30] MEDS ORDERED: SODIUM CHLORIDE 0.9% 500 ML IV ONE (23:22)
[2017-08-30] MEDS ORDERED: PYRIDOXINE 100 MG/ML 1 ML VIAL IVP STA (23:26)
[2017-08-31] MEDS: DEXTROSE 5%-0.45% NACL 1,000 ML IV SCH ×2 (02:02→03:06)
[2017-08-31 04:04] VITALS: BP 110/54; PULSE 93; RESP 17
[2017-08-31] MEDS ORDERED: METOCLOPRAMIDE 5 MG/ML 2 ML VIAL IVP STA (04:11)
[2017-08-31] MEDS ORDERED: diphenhydrAMINE 50 MG/ML 1 ML VIAL IVP STA (04:11)
[2017-09-02 14:36] LABS: C. trachomatis,PCR Negative (Neg,Equiv); Chlamydia trachomatis Source Cervix; N. gonorrhoeae,PCR Negative (Neg,Equiv); Neisseria Source Cervix
== END 2017-08-31 04:27 | disposition home or self-care (01) ==
LOC: EC 21:03
DX: O21.0 Mild hyperemesis gravidarum (principal); O99.89 Other specified diseases and conditions complicating pregnancy, childbirth and the puerperium; R19.7 Diarrhea, unspecified; R10.9 Unspecified abdominal pain; N89.8 Other specified noninflammatory disorders of vagina; Z3A.01 Less than 8 weeks gestation of pregnancy
CPT/HCPCS: 36415; 80053; 82150; 83690; 85025; 81001; 84702; 87808; 87491; 87591; 87070; 76801; 99284; 96374; 96375 ×2; 96376 ×2; 96361 ×2; J1200 ×2; J3415; J2765 ×2; 87205

== ENCOUNTER 2017-11-22 08:22 | Emergency (ER) | payer OTHER ==
[2017-11-22 08:30] VITALS: TEMP 97.2
[2017-11-22] MEDS ORDERED: SODIUM CHLORIDE 0.9% 1,000 ML IV STA (08:43)
--- NOTE | 2017-11-22 08:45 | ED ---
General Adult HPI - General Chief complaint: Abdominal Pain Stated complaint: Abd.pain 19 wks Time Seen by Provider: 11/22/17 08:35 Source: patient, RN notes reviewed Mode of arrival: ambulatory Limitations: no limitations - History of Present Illness Initial comments: Patient 22-year-old female who is G3, P1 one previous miscarriage, presenting today at 19 weeks with a chief complaint of increased left lower quadrant pain. Patient does admit that she's had some diarrheal it's been green in color over the last 24 hours. She states at 4 AM started having increased pain left lower quadrant. She does admit that it comes and goes describes it as a sharp pain. She does not want to take anything for the pain. Does admit to nausea and vomiting throughout the . Denies any other complaints or symptoms. Patient denies any recent fever, chills, shortness of breath, chest pain, back pain, numbness or tingling, dysuria or hematuria, constipation, headaches or visual changes, or any other complaints. - Related Data Home Medications Medication Instructions Recorded Confirmed No Known Home Medications [No 11/22/17 11/22/17 Known Home Medications] Allergies Allergy/AdvReac Type Severity Reaction Status Date / Time No Known Allergies Allergy Verified 11/22/17 08:55 Review of Systems ROS Statement: Those systems with pertinent positive or pertinent negative responses have been documented in the HPI. ROS Other: All systems not noted in ROS Statement are negative. Past Medical History Past Medical History: No Reported History Additional Past Medical History / Comment(s): irregular periods History of Any Multi-Drug Resistant Organisms: None Reported Past Surgical History: No Surgical Hx Reported Past Anesthesia/Blood Transfusion Reactions: No Reported Reaction Additional Past Anesthesia/Blood Transfusion Reaction / Comment(s): pt states has never received anesthesia Past Psychological History: No Psychological Hx Reported Smoking Status: Never smoker Past Alcohol Use History: None Reported Past Drug Use History: None Reported - Past Family History Mother Family Medical History: No Reported History General Exam - General Exam Comments Initial Comments: General: The patient is awake and alert, in no distress, and does not appear acutely ill. Eye: Pupils are equal, round and reactive to light, extra-ocular movements are intact. No nystagmus. There is normal conjunctiva bilaterally. No signs of icterus. Ears, nose, mouth and throat: There are moist mucous membranes and no oral lesions. Neck: The neck is supple, there is no tenderness or JVD. Cardiovascular: There is a regular rate and rhythm. No murmur, rub or gallop is appreciated. Respiratory: Lungs are clear to auscultation, respirations are non-labored, breath sounds are equal. No wheezes, stridor, rales, or rhonchi. Gastrointestinal: Abdomen soft on palpation. Patient does have tenderness left lower quadrant. No rebound tenderness. No guarding. No CVA tenderness. Musculoskeletal: Normal ROM, no tenderness. Strength 5/5. Sensation intact. Pulses equal bilaterally 2+. Neurological: A&O x 3. CN II-XII intact, There are no obvious motor or sensory deficits. Coordination appears grossly intact. Speech is normal. Skin: Skin is warm and dry and no rashes or lesions are noted. Psychiatric: Cooperative, appropriate mood & affect, normal judgment. Limitations: no limitations Course Vital Signs 11/22/17 11/22/17 08:26 10:10 Temperature 97.2 F L Pulse Rate 72 93 Respiratory 17 18 Rate Blood Pressure 100/58 95/54 O2 Sat by Pulse 100 98 Oximetry Medical Decision Making - Medical Decision Making Patient reexamined at this time shows no signs of distress she states she is feeling much better here in the emergency room after IV fluids. Patient states pain is resolved. Patient's ultrasound shows single IUP measuring 19 weeks 3 days. Results were discussed with patient. Labs been reviewed. Patient will be discharged follow-up with her [facility]. Advised return if any symptoms increase worsen or for any other concern. - Lab Data Result diagrams: 11/22/17 08:20 11/22/17 08:20 Lab Results 11/22/17 11/22/17 11/22/17 Range/Units 08:20 08:20 08:20 WBC 13.2 H (3.8-10.6) k/uL RBC 4.12 (3.80-5.40) m/uL Hgb 11.5 (11.4-16.0) gm/dL Hct 34.6 (34.0-46.0) % MCV 83.9 (80.0-100.0) fL MCH 28.0 (25.0-35.0) pg MCHC 33.4 (31.0-37.0) g/dL RDW 14.1 (11.5-15.5) % Plt Count 219 (150-450) k/uL Neutrophils % 80 % Lymphocytes % 14 % Monocytes % 4 % Eosinophils % 1 % Basophils % 0 % Neutrophils # 10.6 H (1.3-7.7) k/uL Lymphocytes # 1.9 (1.0-4.8) k/uL Monocytes # 0.5 (0-1.0) k/uL Eosinophils # 0.1 (0-0.7) k/uL Basophils # 0.0 (0-0.2) k/uL Sodium 136 L (137-145) mmol/L Potassium 4.0 (3.5-5.1) mmol/L Chloride 105 (98-107) mmol/L Carbon Dioxide 21 L (22-30) mmol/L Anion Gap 10 mmol/L BUN 6 L (7-17) mg/dL Creatinine 0.41 L (0.52-1.04) mg/dL Est GFR (CKD-EPI)AfAm >90 (>60 ml/min/1.73 sqM) Est GFR (CKD-EPI)NonAf >90 (>60 ml/min/1.73 sqM) Glucose 76 (74-99) mg/dL Calcium 9.2 (8.4-10.2) mg/dL Total Bilirubin 0.3 (0.2-1.3) mg/dL AST 16 (14-36) U/L ALT 18 (9-52) U/L Alkaline Phosphatase 72 (38-126) U/L Total Protein 6.6 (6.3-8.2) g/dL Albumin 3.6 (3.5-5.0) g/dL Urine Color Urine Appearance (Clear) Urine pH (5.0-8.0) Ur Specific [place] (1.001-1.035) Urine Protein (Negative) Urine Glucose (UA) (Negative) Urine Ketones (Negative) Urine Blood (Negative) Urine Nitrite (Negative) Urine Bilirubin (Negative) Urine Urobilinogen (<2.0) mg/dL Ur Leukocyte Esterase (Negative) Blood Type O Positive Blood Type Recheck No 11/22/17 Range/Units 08:20 WBC (3.8-10.6) k/uL RBC (3.80-5.40) m/uL Hgb (11.4-16.0) gm/dL Hct (34.0-46.0) % MCV (80.0-100.0) fL MCH (25.0-35.0) pg MCHC (31.0-37.0) g/dL RDW (11.5-15.5) % Plt Count (150-450) k/uL Neutrophils % % Lymphocytes % % Monocytes % % Eosinophils % % Basophils % % Neutrophils # (1.3-7.7) k/uL Lymphocytes # (1.0-4.8) k/uL Monocytes # (0-1.0) k/uL Eosinophils # (0-0.7) k/uL Basophils # (0-0.2) k/uL Sodium (137-145) mmol/L Potassium (3.5-5.1) mmol/L Chloride (98-107) mmol/L Carbon Dioxide (22-30) mmol/L Anion Gap mmol/L BUN (7-17) mg/dL Creatinine (0.52-1.04) mg/dL Est GFR (CKD-EPI)AfAm (>60 ml/min/1.73 sqM) Est GFR (CKD-EPI)NonAf (>60 ml/min/1.73 sqM) Glucose (74-99) mg/dL Calcium (8.4-10.2) mg/dL Total Bilirubin (0.2-1.3) mg/dL AST (14-36) U/L ALT (9-52) U/L Alkaline Phosphatase (38-126) U/L Total Protein (6.3-8.2) g/dL Albumin (3.5-5.0) g/dL Urine Color Yellow Urine Appearance Clear (Clear) Urine pH 7.5 (5.0-8.0) Ur Specific [place] 1.016 (1.001-1.035) Urine Protein Trace H (Negative) Urine Glucose (UA) Negative (Negative) Urine Ketones Negative (Negative) Urine Blood Negative (Negative) Urine Nitrite Negative (Negative) Urine Bilirubin Negative (Negative) Urine Urobilinogen <2.0 (<2.0) mg/dL Ur Leukocyte Esterase Negative (Negative) Blood Type Blood Type Recheck Disposition Clinical Impression: Abdominal pain in Disposition: HOME SELF-CARE Condition: Good Instructions: Abdominal Pain in (ED) Additional Instructions: Please use medication as discussed. Please follow-up with [facility] in the next 2 days. Please return to emergency room if the symptoms increase or worsen or for any other concerns. Is patient prescribed a controlled substance at d/c from ED?: No Referrals: Caleb Sanchez DO [Primary Care Provider] - 1-2 days Time of Disposition: 10:31
[2017-11-22 09:12] LABS: Basophils % (A) 0 %; Eosinophils # (A) 0.1 k/uL (0-0.7); Eosinophils % (A) 1 %; HCT 34.6 % (34.0-46.0); HGB 11.5 gm/dL (11.4-16.0); Lymphocytes # (A) 1.9 k/uL (1.0-4.8); Lymphocytes % (A) 14 %; MCHC 33.4 g/dL (31.0-37.0); MCV 83.9 fL (80.0-100.0); Mean Platelet Volume 8.2; Monocytes # (A) 0.5 k/uL (0-1.0); Monocytes % (A) 4 %; Neutrophils # (A) 10.6 k/uL (1.3-7.7); Neutrophils % (A) 80 %; Platelet Count 219 k/uL (150-450); RBC 4.12 m/uL (3.80-5.40); RDW 14.1 % (11.5-15.5); WBC 13.2 k/uL (3.8-10.6)
[2017-11-22 09:13] LABS: Appearance,Urine Clear (Clear); Bilirubin,Urine Negative (Negative); Blood,Urine Negative (Negative); Color,Urine Yellow; Glucose,Urine (UA) Negative (Negative); Ketones,Urine Negative (Negative); Leukocyte Esterase,Urine Negative (Negative); Nitrite,Urine Negative (Negative); PH, Urine 7.5 (5.0-8.0); Protein,Urine Trace (Negative); Specific Gravity,Urine 1.016 (1.001-1.035); Urobilinogen,Urine <2.0 mg/dL (<2.0)
[2017-11-22 09:39] LABS: ALT 18 U/L (9-52); AST 16 U/L (14-36); Albumin 3.6 g/dL (3.5-5.0); Alkaline Phosphatase 72 U/L (38-126); Anion Gap 10 mmol/L; Blood Urea Nitrogen 6 mg/dL (7-17); Calcium 9.2 mg/dL (8.4-10.2); Carbon Dioxide 21 mmol/L (22-30); Chloride 105 mmol/L (98-107); Glucose 76 mg/dL (74-99); Sodium 136 mmol/L (137-145); Total Bilirubin 0.3 mg/dL (0.2-1.3); Total Protein 6.6 g/dL (6.3-8.2)
--- NOTE | 2017-11-22 09:57 | US ---
EXAMINATION TYPE: US OB >= 14 wk fetus DATE OF EXAM: 11/22/2017 COMPARISON: US CLINICAL HISTORY: PainPt states LLQ pain that started this AM, denies bleeding TECHNIQUE: GESTATIONAL AGE / DATING Physician Established: (19 weeks/3 days) EDC: 04/15/2018 Dates by LMP: (19 weeks/3 days) EDC: 04/15/2018 Dates by First Scan: (19 weeks/1 days) EDC: 04/17/2018 Dates by Current Scan: (19 weeks/1 days) EDC: 04/17/2018 SURVEY IUP: Single PLACENTA: Posterior PREVIA: No Previa BRYAN: 9.6 cm Slightly low CERVICAL LENGTH (transabdominal: norm > 3.0cm): 4.0 cm BIOMETRY PRESENTATION: Vertex BPD: 4.4 cm 19 weeks / 2 days HC: 16.7 cm 19 weeks / 3 days AC: 13.9 cm 19 weeks / 2 days FL: 2.9 cm 19 weeks / 0 days ESTIMATED WEIGHT IN GRAMS: 279 grams ESTIMATED WEIGHT IN LBS/OZ: 0 lbs. 10 oz. WEIGHT PERCENTAGE BASED ON ESTABLISHED DATES: 32% HC/AC: 1.21 Normal FL/AC: 21 Normal HEART RATE: 160 bpm RHYTHM: Normal Single, viable IUP/ Slightly low BRYAN/ No abnormality visualized to account for pt's symptoms IMPRESSION: Single viable intrauterine of 19 weeks 3 days with a heart rate of 160 bpm. See above enedelia patel BRYAN measurement. Follow-up exam on a short-term basis as clinically warranted.
[2017-11-22 10:11] VITALS: BP 95/54; PULSE 93; RESP 18
== END 2017-11-22 10:37 | disposition home or self-care (01) ==
LOC: EC 08:22
DX: O99.89 Other specified diseases and conditions complicating pregnancy, childbirth and the puerperium (principal); R10.32 Left lower quadrant pain; R19.7 Diarrhea, unspecified; O21.9 Vomiting of pregnancy, unspecified; Z3A.19 19 weeks gestation of pregnancy
CPT/HCPCS: 36415; 76805; 80053; 81003; 85025; 86900; 86901; 87086; 96360; 96361; 99284

== ENCOUNTER 2018-04-02 20:17 | Outpatient (CLI) | payer OTHER ==
[2018-04-02 22:04] VITALS: BP 115/60; PULSE 81; RESP 16; TEMP 97.6
--- NOTE | 2018-04-11 08:46 | P.MSEPDOC ---
Presenting Problems - Arrival Data Date of Arrival on Unit: 04/02/18 Time of Arrival on Unit: 20:17 Mode of Transport: Wheelchair - Complaint OB-Reason for Admission/Chief Complaint: Possible Onset of Labor Medical History - Information : 2 Para: 1 Term: 1 : 0 Abortions: Spontaneous or Elective: 0 Number of Living Children: 1 - Gestational Age Gestational Age by ZACHARIAH (wks/days): 38 Weeks and 1 Days Review of Systems - Review of Systems Constitutional: No problems Breast: No problems ENT: No problems Cardiovascular: No problems Respiratory: No problems Gastrointestinal: No problems Genitourinary: No problems Musculoskeletal: No problems Neurological: No problems Skin: No problems Vital Signs - Temperature Temperature: 97.6 F Temperature Source: Temporal Artery Scan - Pulse Right Sitting Brachial Pulse Rate: 81 Pulse Assessment Method: Automatic Cuff - Respirations Respiratory Rate: 16 Oxygen Delivery Method: Room Air O2 Sat by Pulse Oximetry: 98 - Blood Pressure Right Arm Sitting Blood Pressure: 115/60 Blood Pressure Mean: 78 Blood Pressure Source: Automatic Cuff Medical Screen Scoring (Pre) - Cervical Exam Dilation: 4-7 cm = 2 Membranes: Intact - Uterine Contractions Frequency: N/A Duration: N/A Intensity: N/A - Maternal Vital Signs Maternal Temperature: N/A Signs of Preeclampsia: N/A Maternal Respirations: N/A - Assessment Baseline FHR: 135 Heart Rate - NICHD Category: Category I (Normal) = 0 NST: Reactive - Total Score Total Score (Pre): 2 - Level of Risk Level of Risk: Low (0-5) Physician Notification (Pre) - Physician Notified Physician Notified Date: 04/02/18 Physician Notified Time: 21:52 Physician/Practitioner Notifed:: Dr Bon Henley Order Received: Yes Disposition - Disposition OB Disposition: Discharge to home, Written follow up instructions reviewed Discharge Date: 04/02/18 Discharge Time: 21:59 I agree with the RN Medical Screening Exam: Yes Risk & Benefit of care provided described in d/c instruction: Yes Diagnosis: FALSE LABOR AT OR AFTER 37 COMPLETED WEEKS OF GESTATION
== END 2018-04-02 22:00 | disposition home or self-care (01) ==
LOC: FBPOP 20:17
PROVIDERS: ATTEND Obstetrics & Gynecology
DX: O47.1 False labor at or after 37 completed weeks of gestation (principal); Z3A.38 38 weeks gestation of pregnancy
CPT/HCPCS: 59025; G0463; 99213

== ENCOUNTER 2018-04-09 19:42 | Outpatient (CLI) | payer OTHER ==
[2018-04-09 22:10] VITALS: BP 132/60; PULSE 82; RESP 16; TEMP 97
--- NOTE | 2018-04-10 00:45 | P.MSEPDOC ---
Presenting Problems - Arrival Data Date of Arrival on Unit: 04/09/18 Time of Arrival on Unit: 19:42 Mode of Transport: Wheelchair - Complaint OB-Reason for Admission/Chief Complaint: Possible Onset of Labor Medical History - Information : 2 Para: 1 Term: 1 : 0 Abortions: Spontaneous or Elective: 0 Number of Living Children: 1 - Gestational Age Gestational Age by ZACHARIAH (wks/days): 39 Weeks and 1 Days Review of Systems - Review of Systems Constitutional: No problems Breast: No problems ENT: No problems Cardiovascular: No problems Respiratory: No problems Gastrointestinal: No problems Genitourinary: No problems Musculoskeletal: No problems Neurological: No problems Skin: No problems Vital Signs - Temperature Temperature: 97.0 F Temperature Source: Temporal Artery Scan - Pulse Right Brachial Pulse Rate: 82 Pulse Assessment Method: Automatic Cuff - Respirations Respiratory Rate: 16 Oxygen Delivery Method: Room Air O2 Sat by Pulse Oximetry: 98 - Blood Pressure Right Arm Blood Pressure: 132/60 Blood Pressure Mean: 84 Blood Pressure Source: Automatic Cuff Medical Screen Scoring (Pre) - Cervical Exam Dilation: 4-7 cm = 2 Membranes: Intact - Uterine Contractions Frequency: > or = 36 weeks =2 - Maternal Vital Signs Maternal Temperature: N/A Maternal Blood Pressure: N/A Signs of Preeclampsia: N/A Maternal Respirations: N/A - Pain Assessment Pain Location and Character: Abdomen Pain Scale Used: Numeric (1 - 10) Pain Intensity: 6 Pain Description: *Acute, Cramping Pain Frequency: Intermittent Pain Duration Units: Minutes Pain Behavior: None Exhibited Pain Aggravating Factors: Contractions - Assessment Baseline FHR: 140 Heart Rate - NICHD Category: Category I (Normal) = 0 NST: Reactive - Total Score Total Score (Pre): 4 - Level of Risk Level of Risk: Low (0-5) Physician Notification (Pre) - Physician Notified Physician Notified Date: 04/09/18 Physician Notified Time: 21:55 Physician/Practitioner Notifed:: Dr. Colon Spoke With: Dr. Colon New Order Received: Yes - Notification Comment Comment: Dr. Colon given report on pt in tr. Pt c/o. VS wnl. Reactive nst. Vag exam of. 4/70/-1 and vag exam after one hr of 4.5/70/-1. If pt wishes, pt to stay additional hour. and be checked or may be d/c to home. Pt made no change after one hr. Orders recieved to d/c to home Disposition - Disposition OB Disposition: Discharge to home Discharge Date: 04/09/18 Discharge Time: 22:00 I agree with the RN Medical Screening Exam: Yes Risk & Benefit of care provided described in d/c instruction: Yes Diagnosis: FALSE LABOR AT OR AFTER 37 COMPLETED WEEKS OF GESTATION
== END 2018-04-09 22:00 | disposition home or self-care (01) ==
LOC: FBPOP 19:42
PROVIDERS: ATTEND Obstetrics & Gynecology
DX: O47.1 False labor at or after 37 completed weeks of gestation (principal); Z3A.39 39 weeks gestation of pregnancy
CPT/HCPCS: 59025; G0463; 99213

== ENCOUNTER 2018-04-09 23:20 | Inpatient (IN) | payer OTHER ==
[2018-04-09] MEDS ORDERED: CARBOPROST TROMETHAMINE 250 MCG/ML 1 ML AMP IM PRN (23:38)
[2018-04-09] MEDS ORDERED: OXYTOCIN 10 UNIT/ML 1 ML VIAL IM PRN (23:38)
[2018-04-09] MEDS ORDERED: METHYLERGONOVINE 0.2 MG/ML 1 ML AMP IM PRN (23:38)
[2018-04-09] MEDS ORDERED: LIDOCAINE 0.5% (PF) 5 MG/ML (50 ML SDV) SQ PRN (23:38)
[2018-04-09] MEDS ORDERED: TERBUTALINE 1 MG/ML VIAL SQ PRN (23:38)
[2018-04-09] MEDS ORDERED: OXYTOCIN 20 UNITS/1000 ML NS 1,000 ML IV SCH (23:45)
[2018-04-09] MEDS ORDERED: LACTATED RINGERS 1,000 ML IV SCH (23:45)
[2018-04-09 23:55] VITALS: BMI 25.0
[2018-04-09 23:58] LABS: Basophils % (A) 0 %; Eosinophils # (A) 0.1 k/uL (0-0.7); Eosinophils % (A) 1 %; HCT 34.5 % (34.0-46.0); HGB 10.7 gm/dL (11.4-16.0); Hypochromasia Moderate; Lymphocytes # (A) 2.6 k/uL (1.0-4.8); Lymphocytes % (A) 24 %; MCH 24.1 pg (25.0-35.0); MCV 77.7 fL (80.0-100.0); Microcytosis Slight; Monocytes # (A) 0.5 k/uL (0-1.0); Monocytes % (A) 5 %; Neutrophils # (A) 7.3 k/uL (1.3-7.7); Neutrophils % (A) 67 %; Platelet Count 248 k/uL (150-450); RBC 4.44 m/uL (3.80-5.40); WBC 10.9 k/uL (3.8-10.6)
--- NOTE | 2018-04-10 00:40 | P.HPOB ---
History of Present Illness H&P Date: 04/10/18 Chief Complaint: Contractions This is a 23-year-old female 3 para 1 with an estimated date of confinement of 04/15/2018, estimated gestational age of 39-2/7 weeks, who presents to labor and delivery with complaints of contractions. She was seen in triage earlier this evening and was watched for 2 hours and remain no cervical change management expert 2 hours. She was then discharged home and came back shortly after with stronger and more regular contractions. At that time she was noted to have a bulging bag and to be about 6 cm. care has been with Dr. Sanchez. labs: Hepatitis B surface antigen-negative RPR-nonreactive Rubella-immune Blood type-O+ Antibody screen-negative The globe and-11.4 Toxoplasma-negative Random glucose-78 Obstetrical ultrasound-normal anatomy Group B streptococcus-negative Obstetrical history: . History of 1 vaginal delivery at 41 weeks. History of 1 miscarriage per patient. Review of Systems Constitutional: Denies chills, Denies fever Eyes: denies blurred vision, denies pain Ears, nose, mouth and throat: Denies headache, Denies sore throat Cardiovascular: Denies chest pain, Denies shortness of breath Respiratory: Denies cough Gastrointestinal: Reports abdominal pain (Contractions) Genitourinary: Reports pelvic pain, Reports Musculoskeletal: Reports low back pain Integumentary: Reports as per HPI Neurological: Denies numbness, Denies weakness Psychiatric: Denies anxiety, Denies depression Past Medical History Past Medical History: No Reported History Additional Past Medical History / Comment(s): irregular periods History of Any Multi-Drug Resistant Organisms: None Reported Additional Past Surgical History / Comment(s): D&C Past Anesthesia/Blood Transfusion Reactions: No Reported Reaction Additional Past Anesthesia/Blood Transfusion Reaction / Comment(s): pt states has never received anesthesia Past Psychological History: No Psychological Hx Reported Smoking Status: Never smoker Past Alcohol Use History: None Reported Past Drug Use History: None Reported - Past Family History Mother Family Medical History: No Reported History Medications and Allergies Home Medications Medication Instructions Recorded Confirmed Type Pnv No.95/Ferrous Fum/Folic AC 1 tab PO ONCE 04/09/18 04/09/18 History [ Multivitamin Tablet] Allergies Allergy/AdvReac Type Severity Reaction Status Date / Time No Known Allergies Allergy Verified 04/09/18 23:36 Exam Osteopathic Statement: *. No significant issues noted on an osteopathic structural exam other than those noted in the History and Physical/Consult. Vital Signs Temp Pulse Resp BP Pulse Ox 04/09/18 23:36 97.6 F 53 L 16 104/57 98 Intake and Output 04/09/18 04/09/18 04/10/18 14:59 22:59 06:59 Other: Weight 63.957 kg HEENT: Within normal limits Heart: Regular rate and rhythm Lungs: Clear to auscultation bilaterally Abdomen: Cervix: Approximate 5-1/2-6 cm with bulging bag per nursing staff. heart tones: Reactive Contractions: Every 2 minutes Extremities: Negative Homans Results Result Diagrams: 04/09/18 23:47 Abnormal Lab Results - Last 24 Hours (Table) 04/09/18 Range/Units 23:47 WBC 10.9 H (3.8-10.6) k/uL Hgb 10.7 L (11.4-16.0) gm/dL MCV 77.7 L (80.0-100.0) fL MCH 24.1 L (25.0-35.0) pg RDW 16.0 H (11.5-15.5) % Assessment and Plan (1) 39 weeks gestation of Current Visit: Yes Status: Acute Code(s): Z3A.39 - 39 WEEKS GESTATION OF SNOMED Code(s): 42942434 Plan: Admission for active labor. Epidural anesthesia. Expectant management.
--- NOTE | 2018-04-10 00:42 | P.PROBDLV ---
Vaginal Delivery Note - . Vaginal Delivery Note: The patient progressed fairly rapidly to complete dilation. She was unable to get an epidural due to the fast progress of her labor. She rather precipitously delivered vaginally a viable female infant in the vertex presentation with scores of 9 at 1 minute and 9 at 5 minutes. weight was 7 pounds 0.5 ounces. Cord blood was obtained secondary to O+ blood type. Placenta delivered shortly thereafter, intact, with a three-vessel cord. Uterus contracted well after oxytocin was given and uterine massage was carried out. Inspection of the perineum revealed no perineal lacerations. Estimated blood loss is approximately 150 mL. Both mother and infant are in stable condition.
[2018-04-10] MEDS ORDERED: BENZOCAINE/MENTHOL SPRAY 1 GM/SPRAY AEROSOL TOPICAL PRN (02:26)
[2018-04-10] MEDS ORDERED: diphenhydrAMINE 50 MG/ML 1 ML VIAL IVP PRN ×2 (02:26)
[2018-04-10] MEDS ORDERED: diphenhydrAMINE 50 MG CAP PO PRN (02:26)
[2018-04-10] MEDS ORDERED: ZOLPIDEM 5 MG TAB PO PRN (02:26)
[2018-04-10] MEDS ORDERED: OXYTOCIN 20 UNITS/1000 ML NS 1,000 ML IV SCH (02:26)
[2018-04-10] MEDS ORDERED: SIMETHICONE 80 MG CHEWABLE PO PRN (02:26)
[2018-04-10] MEDS ORDERED: HYDROCORTISONE 2.5% RECTAL CREAM 30 GM TUBE RECTAL PRN (02:26)
[2018-04-10] MEDS ORDERED: LANOLIN CREAM 5 GM TUBE TOPICAL PRN (02:26)
[2018-04-10] MEDS ORDERED: ACETAMINOPHEN TAB 325 MG TAB PO PRN (02:26)
[2018-04-10] MEDS ORDERED: WITCH HAZEL 1 EACH MED..PAD TOPICAL PRN (02:26)
[2018-04-10] MEDS ORDERED: diphenhydrAMINE 25 MG CAP PO PRN (02:26)
[2018-04-10] MEDS: IBUPROFEN 600 MG TAB PO PRN ×2 (04:17→11:45)
[2018-04-10] MEDS: SENNOSIDES-DOCUSATE SODIUM 1 EACH TAB PO SCH ×2 (07:57→22:46)
[2018-04-10 12:05] VITALS: RESP 16
[2018-04-11 07:51] VITALS: BP 112/67; PULSE 57; TEMP 98
[2018-04-11 07:59] LABS: Anisocytosis Slight; Basophils # (A) 0.1 k/uL (0-0.2); Basophils % (A) 1 %; Eosinophils # (A) 0.2 k/uL (0-0.7); Eosinophils % (A) 1 %; HCT 33.5 % (34.0-46.0); HGB 10.2 gm/dL (11.4-16.0); Hypochromasia Marked; Lymphocytes # (A) 3.4 k/uL (1.0-4.8); Lymphocytes % (A) 29 %; MCH 24.1 pg (25.0-35.0); MCHC 30.3 g/dL (31.0-37.0); MCV 79.5 fL (80.0-100.0); Mean Platelet Volume 6.7; Monocytes # (A) 0.5 k/uL (0-1.0); Monocytes % (A) 4 %; Neutrophils # (A) 7.2 k/uL (1.3-7.7); Neutrophils % (A) 62 %; Platelet Count 235 k/uL (150-450); RBC 4.22 m/uL (3.80-5.40); RDW 16.2 % (11.5-15.5); WBC 11.5 k/uL (3.8-10.6)
--- NOTE | 2018-04-11 08:35 | P.MSEPDOC ---
Presenting Problems - Arrival Data Date of Arrival on Unit: 04/10/18 Time of Arrival on Unit: 23:15 Mode of Transport: Wheelchair - Complaint OB-Reason for Admission/Chief Complaint: Possible Onset of Labor, Unknown Medical History - Information : 3 Para: 1 Term: 1 : 0 Abortions: Spontaneous or Elective: 1 Number of Living Children: 1 - Gestational Age Gestational Age by ZACHARIAH (wks/days): 39 Weeks and 2 Days Review of Systems - Review of Systems Constitutional: No problems Breast: No problems ENT: No problems Cardiovascular: No problems Respiratory: No problems Gastrointestinal: No problems Genitourinary: No problems Musculoskeletal: No problems Neurological: No problems Skin: No problems Vital Signs - Temperature Temperature: 98.0 F Temperature Source: Oral - Pulse Right Brachial Pulse Rate: 57 Pulse Assessment Method: Auscultation - Respirations Respiratory Rate: 16 - Blood Pressure Right Arm Blood Pressure: 112/67 Blood Pressure Mean: 82 Blood Pressure Source: Automatic Cuff Medical Screen Scoring (Pre) - Cervical Exam Dilation: 4-7 cm = 2 Membranes: Intact - Uterine Contractions Frequency: > or = 36 weeks =2 Intensity: Contraction palpated strong = 1 - Maternal Vital Signs Maternal Temperature: N/A Maternal Blood Pressure: N/A Signs of Preeclampsia: N/A Maternal Respirations: N/A - Pain Assessment Pain Location and Character: Abdomen Pain Scale Used: Numeric (1 - 10) Pain Intensity: 10 Pain Description: *Acute, Cramping Pain Frequency: Intermittent Pain Duration Units: Minutes Pain Behavior: Crying, Facial Grimacing, Vocalization Pain Aggravating Factors: Contractions - Assessment Baseline FHR: 150 Heart Rate - NICHD Category: Category I (Normal) = 0 NST: Reactive - Total Score Total Score (Pre): 5 - Level of Risk Level of Risk: Low (0-5) Physician Notification (Pre) - Physician Notified Physician Notified Date: 04/10/18 Physician Notified Time: 23:28 Physician/Practitioner Notifed:: Dr. Colon Spoke With: Dr. Colon New Order Received: Yes - Notification Comment Comment: Dr. Colon given report on pt in triage. Pt vag of /-1, bulging bag. Orders recieved to admit pt. Coming in Disposition - Disposition OB Disposition: Admit I agree with the RN Medical Screening Exam: Yes Risk & Benefit of care provided described in d/c instruction: Yes Diagnosis: ENCOUNTER FOR FULL-TERM UNCOMPLICATED DELIVERY
--- NOTE | 2018-04-11 08:48 | P.DS ---
Providers Date of admission: 04/09/18 23:29 Expected date of discharge: 04/11/18 Attending physician: Caleb Sanchez Primary care physician: Stated None Hospital Course: Patient is doing very well day 1. She's ablating, voiding, and she is tolerating her diet. She voices no complaints. Vital signs are stable and she is afebrile. Heart regular, lungs clear, extremities without pain. Abdomen is soft uterus is firm and lochia is reported to be light. Assessment day 1. Plan discharged home follow up with me in 6 weeks. Prescription for Motrin was forwarded to the pharmacy. All the questions are answered for her prior to discharge and she is stable for discharge at this time. Patient Condition at Discharge: Good Plan - Discharge Summary New Discharge Prescriptions: New Ibuprofen [Motrin] 600 mg PO Q6HR PRN #30 tab PRN Reason: Pain No Action Pnv No.95/Ferrous Fum/Folic AC [ Multivitamin Tablet] 1 tab PO ONCE Discharge Medication List Pnv No.95/Ferrous Fum/Folic AC [ Multivitamin Tablet] 1 tab PO ONCE [History] Ibuprofen [Motrin] 600 mg PO Q6HR PRN #30 tab 04/11/18 [Rx] Follow up Appointment(s)/Referral(s): Caleb Sanchez DO [Doctor of Osteopathic Medicine] - 6 Weeks Activity/Diet/Wound Care/Special Instructions: No heavy lifting, limit stairs and driving, and pelvic rest. If any high temperatures, heavy bleeding, or severe pain call my office Discharge Disposition: HOME SELF-CARE
== END 2018-04-11 13:45 | disposition home or self-care (01) | DRG 775 ==
LOC: FBPOP 23:20 → 4FBP 23:29
PROVIDERS: ADMIT Obstetrics & Gynecology; ATTEND Obstetrics & Gynecology
PROC: 10E0XZZ Delivery of Products of Conception, External Approach (ICD-10-PCS; principal; 2018-04-09)
DX: O62.3 Precipitate labor (principal); Z37.0 Single live birth; Z3A.39 39 weeks gestation of pregnancy
CPT/HCPCS: 85025

== ENCOUNTER 2018-06-18 17:10 | Emergency (ER) | payer OTHER ==
[2018-06-18] MEDS ORDERED: ACETAMINOPHEN TAB 325 MG TAB PO STA (17:46)
[2018-06-18] MEDS ORDERED: IBUPROFEN 600 MG TAB PO STA (17:46)
[2018-06-18] MEDS ORDERED: guaiFENesin-DM 600/30MG 1 EACH TAB.ER.12H PO STA (17:47)
--- NOTE | 2018-06-18 18:15 | ED ---
URI HPI - General Chief Complaint: Upper Respiratory Infection Stated Complaint: URI Time Seen by Provider: 06/18/18 17:35 Source: patient Mode of arrival: ambulatory Limitations: no limitations - History of Present Illness Initial Comments: 23-year-old female patient presents to the emergency department today for complaints of sore throat, nasal congestion, and chills. Patient states she's been sick since last evening. States and she woke up was very painful to swallow. She denies any cough at this time. States her child is sick with similar symptoms. She denies any rash, shortness of breath, ear pain, or known fever. States that she has not had a flu vaccine. She denies any significant past medical history. Denies any chance of . Patient denies any recent chest pain, abdominal pain, nausea, vomiting, diarrhea, constipation, back pain, numbness, tingling, dizziness, weakness, hematuria, dysuria, urinary urgency, urinary frequency, headache, visual changes, or any other complaints. - Related Data Previous Rx's Medication Instructions Recorded Oseltamivir [Tamiflu] 75 mg PO Q12HR #10 cap 06/18/18 guaiFENesin-DM 600/30MG [Mucinex 1 each PO Q12HR #10 tab.er.12h 06/18/18 Dm] Allergies Allergy/AdvReac Type Severity Reaction Status Date / Time No Known Allergies Allergy Verified 06/18/18 17:42 Review of Systems ROS Statement: Those systems with pertinent positive or pertinent negative responses have been documented in the HPI. ROS Other: All systems not noted in ROS Statement are negative. Past Medical History Past Medical History: No Reported History Additional Past Medical History / Comment(s): irregular periods History of Any Multi-Drug Resistant Organisms: None Reported Past Surgical History: No Surgical Hx Reported Additional Past Surgical History / Comment(s): D&C Past Anesthesia/Blood Transfusion Reactions: No Reported Reaction Additional Past Anesthesia/Blood Transfusion Reaction / Comment(s): pt states has never received anesthesia Past Psychological History: No Psychological Hx Reported Smoking Status: Never smoker Past Alcohol Use History: None Reported Past Drug Use History: None Reported - Past Family History Mother Family Medical History: No Reported History General Exam Limitations: no limitations General appearance: alert, in no apparent distress, other (This is a well- developed, well-nourished adult female patient in no acute distress. Vital signs upon presentation To 100.6F, pulse 98, respirations 20, blood pressure 101/66, pulse ox 96% on room air.) Eye exam: Present: normal appearance, PERRL, EOMI. Absent: scleral icterus, conjunctival injection, periorbital swelling ENT exam: Present: normal exam, mucous membranes moist, TM's normal bilaterally , other (No tonsillar hypertrophy or exudate). Absent: normal oropharynx ( Pharyngeal erythema) Respiratory exam: Present: normal lung sounds bilaterally. Absent: respiratory distress, wheezes, rales, rhonchi, stridor Cardiovascular Exam: Present: regular rate, normal rhythm, normal heart sounds. Absent: systolic murmur, diastolic murmur, rubs, gallop, clicks GI/Abdominal exam: Present: soft, normal bowel sounds. Absent: distended, tenderness, guarding, rebound, rigid Neurological exam: Present: alert, oriented X3, CN II-XII intact Psychiatric exam: Present: normal affect, normal mood Skin exam: Present: warm, dry, intact, normal color. Absent: rash Course Vital Signs 06/18/18 06/18/18 17:21 20:22 Temperature 100.6 F H 99.3 F Pulse Rate 98 69 Respiratory 20 16 Rate Blood Pressure 101/66 107/78 O2 Sat by Pulse 96 96 Oximetry Medical Decision Making - Medical Decision Making 23-year-old female patient presents to the emergency department today for complaints of sore throat, nasal congestion, and was found to have fever. Influenza and strep testing were negative. Patient's daughter is patient at this time was positive for influenza A, therefore we will treat with Tamiflu. She is instructed to complete his medication and full. She is instructed to increase fluids use [id number] nasal decongestants for symptom relief. She is instructed to follow-up with her primary care physician for recheck in 1- 2 days. Return parameters discussed in detail. She verbalizes understanding and agrees with this plan. - Lab Data Lab Results 06/18/18 06/18/18 Range/Units 18:13 18:13 Influenza Type A RNA Not Detected (Not Detectd) Influenza Type B (PCR) Not Detected (Not Detectd) Group A Strep Rapid Negative (Negative) - Radiology Data Radiology results: report reviewed, image reviewed Disposition Clinical Impression: Influenza A, Pharyngitis Disposition: HOME SELF-CARE Condition: Good Instructions: Pharyngitis (ED), Upper Respiratory Infection (ED) Additional Instructions: Increase fluids. Take medications as directed. Follow up with your primary care physician for recheck in 1-2 days. Return immediately for any new, worsening, or concerning symptoms. Prescriptions: guaiFENesin-DM 600/30MG [Mucinex Dm] 1 each PO Q12HR #10 tab.er.12h Oseltamivir [Tamiflu] 75 mg PO Q12HR #10 cap Is patient prescribed a controlled substance at d/c from ED?: No Referrals: Turner Hutchinson DO [STAFF PHYSICIAN] - 1-2 days Time of Disposition: 20:16
[2018-06-18] MEDS ORDERED: OSELTAMIVIR 75 MG CAP PO STA (20:11)
[2018-06-18 20:23] VITALS: BP 107/78; PULSE 69; RESP 16; TEMP 99.3
== END 2018-06-18 20:26 | disposition home or self-care (01) ==
LOC: EC 17:10
DX: J10.1 Influenza due to other identified influenza virus with other respiratory manifestations (principal)
CPT/HCPCS: 87081; 87430; 87502; 99283

== ENCOUNTER 2019-11-24 14:54 | Inpatient (IN) | payer OTHER ==
[2019-11-24] MEDS ORDERED: OXYTOCIN 10 UNIT/ML 1 ML VIAL IM PRN (14:57)
[2019-11-24] MEDS ORDERED: TERBUTALINE 1 MG/ML VIAL SQ PRN (14:57)
[2019-11-24] MEDS ORDERED: CARBOPROST TROMETHAMINE 250 MCG/ML 1 ML AMP IM PRN (14:57)
[2019-11-24] MEDS ORDERED: LIDOCAINE 0.5% (PF) 5 MG/ML (50 ML SDV) SQ PRN (14:57)
[2019-11-24] MEDS ORDERED: METHYLERGONOVINE 0.2 MG/ML 1 ML AMP IM PRN (14:57)
[2019-11-24] MEDS ORDERED: OXYTOCIN 30 UNITS/500 ML NS 30 UNIT in SALINE 1 500ML.BAG IV SCH (15:00)
[2019-11-24] MEDS: LACTATED RINGERS 1,000 ML IV SCH ×2 (15:29→17:43)
[2019-11-24 15:56] LABS: Basophils % (A) 0 %; Eosinophils # (A) 0.1 k/uL (0-0.7); Eosinophils % (A) 1 %; HCT 34.1 % (34.0-46.0); HGB 11.4 gm/dL (11.4-16.0); Lymphocytes % (A) 20 %; MCH 29.9 pg (25.0-35.0); MCHC 33.5 g/dL (31.0-37.0); MCV 89.4 fL (80.0-100.0); Mean Platelet Volume 9.3; Monocytes # (A) 0.5 k/uL (0-1.0); Monocytes % (A) 5 %; Neutrophils # (A) 7.3 k/uL (1.3-7.7); Neutrophils % (A) 72 %; Platelet Count 192 k/uL (150-450); RBC 3.81 m/uL (3.80-5.40); RDW 13.7 % (11.5-15.5); WBC 10.2 k/uL (3.8-10.6)
[2019-11-24 16:18] LABS: Poikilocytosis (M) Present; Rouleaux Present
[2019-11-24] MEDS ORDERED: fentaNYL (PF) 50 MCG/ML 5 ML AMP ONE (17:12)
[2019-11-24] MEDS ORDERED: SODIUM CHLORIDE 0.9% 100 ML BAG ONE (17:12)
[2019-11-24] MEDS ORDERED: ROPIVACAINE 5MG/ML 20ML VIAL ONE (17:12)
--- NOTE | 2019-11-24 18:20 | P.ANPRN ---
Procedure Note - Anesthesia - Epidural/Spinal Epidural Continuous Time Out Performed: Yes Date of Procedure: 11/24/19 Procedure Start Time: 17:15 Procedure Stop Time: 17:30 Location of Patient: OB Indication: Analgesia, Requested by Surgeon Sedation Type: Awake Preparation: Sterile Dressing Position: Sitting Catheter Depth at Skin (cm): 11 Catheter: Indwelling Needle Guage: 18 Injectate: Test Dose Lidocaine1.5% w/1:200,000 epi Blood Aspirated: No Pain Paresthesia on Injection Noted: No Events: Uneventful and Well Tolerated
[2019-11-24] MEDS ORDERED: WITCH HAZEL 1 EACH MED..PAD TOPICAL PRN (19:43)
[2019-11-24] MEDS ORDERED: diphenhydrAMINE 50 MG CAP PO PRN (19:43)
[2019-11-24] MEDS ORDERED: ZOLPIDEM 5 MG TAB PO PRN (19:43)
[2019-11-24] MEDS ORDERED: LANOLIN CREAM 5 GM TUBE TOPICAL PRN (19:43)
[2019-11-24] MEDS ORDERED: HYDROCORTISONE 2.5% RECTAL CREAM 30 GM TUBE RECTAL PRN (19:43)
[2019-11-24] MEDS ORDERED: diphenhydrAMINE 50 MG/ML 1 ML VIAL IVP PRN ×2 (19:43)
[2019-11-24] MEDS ORDERED: ACETAMINOPHEN TAB 325 MG TAB PO PRN (19:43)
[2019-11-24] MEDS ORDERED: BENZOCAINE/MENTHOL SPRAY 1 GM/SPRAY AEROSOL TOPICAL PRN (19:43)
[2019-11-24] MEDS ORDERED: SIMETHICONE 80 MG CHEWABLE PO PRN (19:43)
[2019-11-24] MEDS ORDERED: diphenhydrAMINE 25 MG CAP PO PRN (19:43)
[2019-11-24] MEDS ORDERED: OXYTOCIN 20 UNITS/1000 ML NS 1,000 ML IV SCH (19:45)
--- NOTE | 2019-11-24 19:49 | P.HPOB ---
History of Present Illness H&P Date: 11/24/19 Chief Complaint: Intrauterine at term: Induction of labor Patient is a 24-year-old G3 3 P2 at 39 weeks gestation who was seen in the office today noted dilated to 5 cm. She requests is admission with induction of labor due to previous precipitous delivery and failure to receive epidural she is sent over and admitted the hospital with Pitocin up dictation of labor. Artificial rupture membranes was performed and clear fluid is noted with a category 1 tracing noted. Her course has been, K by extended periods of noncompliance with her missing multiple appointments particularly early in . Aspirin to progress she did make a better effort to come to her appointments but they still had several no-shows. labs were not completed hemoglobin A1c was ultimately done in lieu of 1 hour Glucola screen which was normal. No other gross abnormalities are noted and there are no other issues per her other than a history of herpes. A pressure for acyclovir was filled and she was supposed to be taking this daily. On at least 2 occasions she related that she was put on arriving to labor and delivery she said that she did take it somewhat sporadically. Discussion prior to rupture membranes does reveal no signs or symptoms of genital warts and she has no lesions visible. She denies prodromal symptoms no itching or tingling. Expect spontaneous vaginal delivery Past Medical History Past Medical History: No Reported History Additional Past Medical History / Comment(s): irregular periods History of Any Multi-Drug Resistant Organisms: None Reported Past Surgical History: No Surgical Hx Reported Additional Past Surgical History / Comment(s): D&C Past Anesthesia/Blood Transfusion Reactions: No Reported Reaction Additional Past Anesthesia/Blood Transfusion Reaction / Comment(s): pt states has never received anesthesia Past Psychological History: No Psychological Hx Reported Smoking Status: Never smoker Past Alcohol Use History: None Reported Past Drug Use History: None Reported - Past Family History Mother Family Medical History: No Reported History Medications and Allergies Home Medications Medication Instructions Recorded Confirmed Type Pnv,Calcium 72/Iron/Folic Acid 1 tab PO DAILY 08/04/19 11/24/19 History [ Plus Tablet] Allergies Allergy/AdvReac Type Severity Reaction Status Date / Time No Known Allergies Allergy Verified 06/18/18 17:42 Exam Osteopathic Statement: *. No significant issues noted on an osteopathic structural exam other than those noted in the History and Physical/Consult. Vital Signs Temp Pulse Resp BP 11/24/19 15:18 97.0 F L 108 H 18 114/64 Intake and Output 11/24/19 11/24/19 11/24/19 06:59 14:59 22:59 Other: Weight 57.606 kg 57.606 kg - OBG Physical Exam Breast: both: normal (no masses) Abdomen: bowel sounds normal, no diffuse tenderness, no bruit present, no guarding noted, no hepatomegaly, no splenomegaly, no mass Vulva: both: normal Vagina: normal moisture, no discharge Cervix: no lesion, no discharge Uterus: normal size, normal contour Adnexa: both: normal Anus/Rectum: normal perianal skin, no rectal mass, no hemorrhoids, heme negative Results Result Diagrams: 11/24/19 15:25
--- NOTE | 2019-11-24 19:50 | P.PROBDLV ---
Vaginal Delivery Note - . Vaginal Delivery Note: Patient progressed complete and pushing with spontaneous vaginal delivery of a viable female over an intact perineum. Falling deliver the head shoulders were easily delivered with gentle downward upper traction followed by the remainder the baby. Mouth nares were then bulb suctioned and baby was placed mother's abdomen where the umbilical cord was allowed to be pulsated for 40 seconds prior to clamping and cutting. Once this was completed nursery personnel was present and assumed care. Placenta was then delivered intact and Pitocin was added to the IV. scores were 9 and 9 at one and 5 minutes just [place] and the weight was 6 lbs. 8 oz. Following delivery both mother and baby are stable.
[2019-11-25 05:25] LABS: HIV 2 AB Non-Reactive (Non-Reactive); HIV AB P24 Non-Reactive (Non-Reactive); HIV P24 AG Non-Reactive (Non-Reactive)
[2019-11-25] MEDS: SENNOSIDES-DOCUSATE SODIUM 1 EACH TAB PO SCH ×2 (05:41→07:49)
[2019-11-25 05:50] LABS: Basophils % (A) 0 %; Eosinophils # (A) 0.1 k/uL (0-0.7); Eosinophils % (A) 1 %; HCT 32.1 % (34.0-46.0); HGB 10.7 gm/dL (11.4-16.0); Lymphocytes # (A) 2.5 k/uL (1.0-4.8); Lymphocytes % (A) 23 %; MCH 29.8 pg (25.0-35.0); MCHC 33.4 g/dL (31.0-37.0); Mean Platelet Volume 9.6; Monocytes # (A) 0.6 k/uL (0-1.0); Monocytes % (A) 5 %; Neutrophils # (A) 7.6 k/uL (1.3-7.7); Neutrophils % (A) 68 %; Platelet Count 175 k/uL (150-450); RBC 3.61 m/uL (3.80-5.40); RDW 13.7 % (11.5-15.5); WBC 11.1 k/uL (3.8-10.6)
[2019-11-25] MEDS: IBUPROFEN 600 MG TAB PO PRN ×2 (07:48→15:57)
[2019-11-25 08:45] VITALS: RESP 15; TEMP 98
[2019-11-25] MEDS: LACTATED RINGERS 1,000 ML IV SCH (08:46)
--- NOTE | 2019-11-25 09:05 | P.DS ---
Providers Date of admission: 11/24/19 14:54 Expected date of discharge: 11/25/19 Attending physician: Caleb Sanchez Primary care physician: Stated None Hospital Course: Patient is doing very well day 1. She is involuting, voiding and tolerating her diet. She voices no complaints. She is requesting discharge home tonight. Vital signs are stable and she is afebrile. Heart regular, lungs clear, extremities without pain. Abdomen soft uterus is firm and lochia is reported light. Prescription for Motrin and breast pump were provided. Discharge instructions thoroughly reviewed. All questions are answered. She'll follow up with me in 6 weeks. Patient Condition at Discharge: Good Plan - Discharge Summary Discharge Rx Participant: Yes New Discharge Prescriptions: New Ibuprofen [Motrin] 600 mg PO Q6HR PRN #30 tab PRN Reason: Pain No Action Pnv,Calcium 72/Iron/Folic Acid [ Plus Tablet] 1 tab PO DAILY Discharge Medication List Pnv,Calcium 72/Iron/Folic Acid [ Plus Tablet] 1 tab PO DAILY 08/04/19 [History] Ibuprofen [Motrin] 600 mg PO Q6HR PRN #30 tab 11/25/19 [Rx] Follow up Appointment(s)/Referral(s): Caleb Sanchez DO [Doctor of Osteopathic Medicine] - 6 Weeks Activity/Diet/Wound Care/Special Instructions: No heavy lifting, limit stairs and driving, and pelvic rest. If any high temperatures, heavy bleeding, or severe pain call my office Discharge Disposition: HOME SELF-CARE
[2019-11-25 14:36] LABS: Hepatitis B Surface Antigen Non-Reactive (Non-Reactive)
[2019-11-25 16:34] VITALS: BP 110/50; PULSE 83
== END 2019-11-25 20:45 | disposition home or self-care (01) | DRG 807 ==
LOC: 4FBP 14:54
PROVIDERS: ADMIT Obstetrics & Gynecology; ATTEND Obstetrics & Gynecology
PROC: 10E0XZZ Delivery of Products of Conception, External Approach (ICD-10-PCS; principal; 2019-11-24)
PROC: 3E0R3BZ Introduction of Anesthetic Agent into Spinal Canal, Percutaneous Approach (ICD-10-PCS; principal; 2019-11-24)
PROC: 00HU33Z Insertion of Infusion Device into Spinal Canal, Percutaneous Approach (ICD-10-PCS; principal; 2019-11-24)
DX: O80 Encounter for full-term uncomplicated delivery (principal); Z37.0 Single live birth; Z3A.39 39 weeks gestation of pregnancy; Z79.899 Other long term (current) drug therapy; Z86.19 Personal history of other infectious and parasitic diseases
CPT/HCPCS: 85025; 86762; 86780; 86850; 86900; 86901; 87340; 87390

== ENCOUNTER 2020-09-12 12:51 | Emergency (ER) | payer OTHER ==
[2020-09-12 12:56] VITALS: TEMP 97.7
[2020-09-12] MEDS ORDERED: ACETAMINOPHEN TAB 500 MG TAB PO STA (13:13)
--- NOTE | 2020-09-12 13:33 | ED ---
Abdominal Pain HPI - General Chief Complaint: Abdominal Pain Stated Complaint: 19wks preg, abd pain Time Seen by Provider: 09/12/20 12:57 Source: patient Mode of arrival: ambulatory Limitations: no limitations - History of Present Illness Initial Comments: Patient is a 25-year-old female presenting to the emergency Department with complaints of left lower quadrant pain that started yesterday. Patient believes she is around 19 weeks , she took a home test which was positive but has yet to see her WEIR FISHERMAN. . WEIR FISHERMAN is Dr. Sanchez. She was on Depo-Provera when she got . She states she's been having some mild nausea throughout this , some intermittent spotting however no vaginal bleeding today. She states she feels like the left lower quadrant pain as sharp at times, crampy in nature. She denies any fever or chills. She denies any vomiting or diarrhea. She denies any dysuria. She has no further complaints at this time. - Related Data Home Medications Medication Instructions Recorded Confirmed No Known Home Medications 09/12/20 09/12/20 Allergies Allergy/AdvReac Type Severity Reaction Status Date / Time No Known Allergies Allergy Verified 09/12/20 13:32 Review of Systems ROS Statement: Those systems with pertinent positive or pertinent negative responses have been documented in the HPI. ROS Other: All systems not noted in ROS Statement are negative. Past Medical History Past Medical History: No Reported History Additional Past Medical History / Comment(s): irregular periods History of Any Multi-Drug Resistant Organisms: None Reported Past Surgical History: No Surgical Hx Reported Additional Past Surgical History / Comment(s): D&C Past Anesthesia/Blood Transfusion Reactions: No Reported Reaction Additional Past Anesthesia/Blood Transfusion Reaction / Comment(s): pt states has never received anesthesia Past Psychological History: No Psychological Hx Reported Smoking Status: Never smoker Past Alcohol Use History: None Reported Past Drug Use History: None Reported - Past Family History Mother Family Medical History: No Reported History General Exam - General Exam Comments Initial Comments: GENERAL: Patient is well-developed and well-nourished. Patient is nontoxic and in no acute distress. HEAD: Atraumatic, normocephalic. EYES: Pupils equal round and reactive to light, extraocular movements intact, sclera anicteric, conjunctiva are normal. Eyelids were unremarkable. ENT: TMs normal, nares patent, oropharynx clear without exudates. Moist mucous membranes. NECK: Normal range of motion, supple without lymphadenopathy or JVD. LUNGS: Unlabored respirations. Breath sounds clear to auscultation bilaterally and equal. No wheezes rales or rhonchi. HEART: Regular rate and rhythm without murmurs, rubs or gallops. ABDOMEN: Mild tender in the LLQ, Soft, normoactive bowel sounds. No guarding, no rebound. No masses appreciated. : Pt left ER before vaginal exam. MUSCULOSKELETAL: Normal extremities with adequate strength and normal range of motion, no pitting or edema. No clubbing or cyanosis. NEUROLOGICAL: Patient is alert and oriented x 3. Motor and sensory are also intact. Cranial nerves II through XII grossly intact. Symmetrical smile. Normal speech, normal gait. PSYCH: Normal mood, normal affect. SKIN: Warm, Dry, normal turgor, no rashes or lesions noted. Limitations: no limitations Course Vital Signs 09/12/20 09/12/20 12:52 12:55 Temperature 97.7 F Pulse Rate 81 75 Respiratory 18 16 Rate Blood Pressure 95/58 105/90 O2 Sat by Pulse 98 99 Oximetry Medical Decision Making - Medical Decision Making She is a 25-year-old female, currently approximately 19 weeks presenting for left lower quadrant pain x 1 day. She has not received any care thus far. G5, P3, the COSMETIC MAKER is Dr. Sanchez. Some mild left-sided pain on palpation, no vaginal bleeding. Labs are normal, no acute process, urine is also normal. Blood type is O+. I did do an ultrasound today which reveals a single viable IUP corresponding to approximate 19 weeks 5 days. No other acute process is seen. Heart rate is 143. After ultrasound resulted, I did go in to speak with the patient however she had already left the ER. I was also not able to do a vaginal exam secondary to patient leaving AMA. - Lab Data Result diagrams: 09/12/20 13:28 09/12/20 13:28 Lab Results 09/12/20 09/12/20 09/12/20 Range/Units 13:15 13:28 13:28 WBC 7.8 (3.8-10.6) k/uL RBC 4.09 (3.80-5.40) m/uL Hgb 12.2 (11.4-16.0) gm/dL Hct 35.2 (34.0-46.0) % MCV 85.9 (80.0-100.0) fL MCH 29.7 (25.0-35.0) pg MCHC 34.6 (31.0-37.0) g/dL RDW 13.7 (11.5-15.5) % Plt Count 184 (150-450) k/uL MPV 7.2 Neutrophils % 68 % Lymphocytes % 24 % Monocytes % 5 % Eosinophils % 1 % Basophils % 0 % Neutrophils # 5.3 (1.3-7.7) k/uL Lymphocytes # 1.9 (1.0-4.8) k/uL Monocytes # 0.4 (0-1.0) k/uL Eosinophils # 0.1 (0-0.7) k/uL Basophils # 0.0 (0-0.2) k/uL Sodium (137-145) mmol/L Potassium (3.5-5.1) mmol/L Chloride (98-107) mmol/L Carbon Dioxide (22-30) mmol/L Anion Gap mmol/L BUN (7-17) mg/dL Creatinine (0.52-1.04) mg/dL Est GFR (CKD-EPI)AfAm (>60 ml/min/1.73 sqM) Est GFR (CKD-EPI)NonAf (>60 ml/min/1.73 sqM) Glucose (74-99) mg/dL Calcium (8.4-10.2) mg/dL Total Bilirubin (0.2-1.3) mg/dL AST (14-36) U/L ALT (4-34) U/L Alkaline Phosphatase (38-126) U/L Total Protein (6.3-8.2) g/dL Albumin (3.5-5.0) g/dL Urine Color Yellow Urine Appearance Clear (Clear) Urine pH 8.0 (5.0-8.0) Ur Specific [place] 1.014 (1.001-1.035) Urine Protein Negative (Negative) Urine Glucose (UA) Negative (Negative) Urine Ketones Negative (Negative) Urine Blood Negative (Negative) Urine Nitrite Negative (Negative) Urine Bilirubin Negative (Negative) Urine Urobilinogen <2.0 (<2.0) mg/dL Ur Leukocyte Esterase Negative (Negative) Blood Type O Positive Blood Type Recheck O Pos Bld Type Recheck Status No 09/12/20 Range/Units 13:28 WBC (3.8-10.6) k/uL RBC (3.80-5.40) m/uL Hgb (11.4-16.0) gm/dL Hct (34.0-46.0) % MCV (80.0-100.0) fL MCH (25.0-35.0) pg MCHC (31.0-37.0) g/dL RDW (11.5-15.5) % Plt Count (150-450) k/uL MPV Neutrophils % % Lymphocytes % % Monocytes % % Eosinophils % % Basophils % % Neutrophils # (1.3-7.7) k/uL Lymphocytes # (1.0-4.8) k/uL Monocytes # (0-1.0) k/uL Eosinophils # (0-0.7) k/uL Basophils # (0-0.2) k/uL Sodium 132 L (137-145) mmol/L Potassium 3.7 (3.5-5.1) mmol/L Chloride 103 (98-107) mmol/L Carbon Dioxide 23 (22-30) mmol/L Anion Gap 6 mmol/L BUN 5 L (7-17) mg/dL Creatinine 0.41 L (0.52-1.04) mg/dL Est GFR (CKD-EPI)AfAm >90 (>60 ml/min/1.73 sqM) Est GFR (CKD-EPI)NonAf >90 (>60 ml/min/1.73 sqM) Glucose 111 H (74-99) mg/dL Calcium 8.9 (8.4-10.2) mg/dL Total Bilirubin 0.3 (0.2-1.3) mg/dL AST 22 (14-36) U/L ALT 11 (4-34) U/L Alkaline Phosphatase 56 (38-126) U/L Total Protein 6.6 (6.3-8.2) g/dL Albumin 3.5 (3.5-5.0) g/dL Urine Color Urine Appearance (Clear) Urine pH (5.0-8.0) Ur Specific [place] (1.001-1.035) Urine Protein (Negative) Urine Glucose (UA) (Negative) Urine Ketones (Negative) Urine Blood (Negative) Urine Nitrite (Negative) Urine Bilirubin (Negative) Urine Urobilinogen (<2.0) mg/dL Ur Leukocyte Esterase (Negative) Blood Type Blood Type Recheck Bld Type Recheck Status Disposition Clinical Impression: Abdominal pain during Disposition: Left Against Medical Advice Condition: Stable Referrals: None,Stated [Primary Care Provider] - 1-2 days Caleb Sanchez DO [Doctor of Osteopathic Medicine] - 1-2 days
[2020-09-12 13:52] LABS: Basophils % (A) 0 %; Eosinophils # (A) 0.1 k/uL (0-0.7); Eosinophils % (A) 1 %; HCT 35.2 % (34.0-46.0); HGB 12.2 gm/dL (11.4-16.0); Lymphocytes # (A) 1.9 k/uL (1.0-4.8); Lymphocytes % (A) 24 %; MCH 29.7 pg (25.0-35.0); MCHC 34.6 g/dL (31.0-37.0); MCV 85.9 fL (80.0-100.0); Mean Platelet Volume 7.2; Monocytes # (A) 0.4 k/uL (0-1.0); Monocytes % (A) 5 %; Neutrophils # (A) 5.3 k/uL (1.3-7.7); Neutrophils % (A) 68 %; Platelet Count 184 k/uL (150-450); RBC 4.09 m/uL (3.80-5.40); RDW 13.7 % (11.5-15.5); WBC 7.8 k/uL (3.8-10.6)
[2020-09-12 13:54] LABS: Appearance,Urine Clear (Clear); Bilirubin,Urine Negative (Negative); Blood,Urine Negative (Negative); Color,Urine Yellow; Glucose,Urine (UA) Negative (Negative); Ketones,Urine Negative (Negative); Leukocyte Esterase,Urine Negative (Negative); Nitrite,Urine Negative (Negative); Protein,Urine Negative (Negative); Specific Gravity,Urine 1.014 (1.001-1.035); Urobilinogen,Urine <2.0 mg/dL (<2.0)
[2020-09-12 14:09] LABS: ALT 11 U/L (4-34); AST 22 U/L (14-36); African American GFR (CKD) >90 (>60 ml/min/1.73 sqM); Albumin 3.5 g/dL (3.5-5.0); Alkaline Phosphatase 56 U/L (38-126); Anion Gap 6 mmol/L; Blood Urea Nitrogen 5 mg/dL (7-17); Calcium 8.9 mg/dL (8.4-10.2); Carbon Dioxide 23 mmol/L (22-30); Chloride 103 mmol/L (98-107); Glucose 111 mg/dL (74-99); Non-African American GFR(CKD) >90 (>60 ml/min/1.73 sqM); Potassium 3.7 mmol/L (3.5-5.1); Sodium 132 mmol/L (137-145); Total Bilirubin 0.3 mg/dL (0.2-1.3); Total Protein 6.6 g/dL (6.3-8.2)
--- NOTE | 2020-09-12 14:30 | US ---
EXAMINATION TYPE: US OB >= 14 wk fetus DATE OF EXAM: 09/12/2020 COMPARISON: None CLINICAL HISTORY: LLQ pain, 19wks, no care yetLeft pelvic pain x 1 day, 5, para 3, miscarri age 1 TECHNIQUE: Transabdominal (TA) GESTATIONAL AGE / DATING Physician Established: Not established yet Dates by LMP: Unknown Dates by First Scan: This is 1st scan Dates by Current Scan: (19 weeks/5 days) EDC: 02/01/2021 SURVEY IUP: Single PLACENTA: Posterior/Fundal PREVIA: No Previa BRYAN: 13.9 cm Normal CERVICAL LENGTH (transabdominal: norm > 3.0cm): 3.2 cm BIOMETRY PRESENTATION: Vertex LIE: Oblique BPD: 4.5 cm 19 weeks / 5 days HC: 16.9 cm 19 weeks / 4 days AC: 14.2 cm 19 weeks / 4 days FL: 3.4 cm 20 weeks / 6 days ESTIMATED WEIGHT IN GRAMS: 330 grams ESTIMATED WEIGHT IN LBS/OZ: 0 lbs. 12 oz. WEIGHT PERCENTAGE BASED ON ESTABLISHED DATES: % HC/AC: 1.19 Normal FL/AC: 24.10 HEART RATE: 143 bpm RHYTHM: Normal Viable single IUP measuring 19 weeks 5 days with a heart rate of 143bpm and an estimated delivery carlos e of 02/01/2021. IMPRESSION: Limited survey. Single viable intrauterine corresponding to ultrasound age 19 weeks 5 days with estimated date of delivery 02/01/2021 by today's exam.
[2020-09-12 15:03] VITALS: BP 105/90; PULSE 75; RESP 16
== END 2020-09-12 15:05 | disposition left against medical advice (07) ==
LOC: EC 12:51
DX: O26.892 Other specified pregnancy related conditions, second trimester (principal); R10.32 Left lower quadrant pain; Z3A.19 19 weeks gestation of pregnancy
CPT/HCPCS: 36415; 76805; 80053; 81003; 85025; 86900; 86901

== ENCOUNTER 2021-01-27 17:13 | Inpatient (IN) | payer OTHER ==
[2021-01-27] MEDS ORDERED: TERBUTALINE 1 MG/ML VIAL SQ PRN (17:22)
[2021-01-27] MEDS ORDERED: METHYLERGONOVINE 0.2 MG/ML 1 ML AMP IM PRN (17:22)
[2021-01-27] MEDS ORDERED: CARBOPROST TROMETHAMINE 250 MCG/ML 1 ML AMP IM PRN (17:22)
[2021-01-27] MEDS ORDERED: AMPICILLIN 2,000 MG in SODIUM CHLORIDE 0.9% 100 ML IVPB STA (17:22)
[2021-01-27] MEDS ORDERED: LIDOCAINE 0.5% (PF) 5 MG/ML (50 ML SDV) SQ PRN (17:22)
[2021-01-27] MEDS ORDERED: OXYTOCIN 10 UNIT/ML 1 ML VIAL IM PRN (17:22)
[2021-01-27] MEDS ORDERED: LACTATED RINGERS 1,000 ML IV SCH (17:30)
[2021-01-27 17:54] LABS: Basophils # (A) 0.1 k/uL (0-0.2); Basophils % (A) 1 %; Eosinophils # (A) 0.1 k/uL (0-0.7); Eosinophils % (A) 1 %; HCT 36.7 % (34.0-46.0); HGB 11.9 gm/dL (11.4-16.0); Lymphocytes # (A) 2.3 k/uL (1.0-4.8); Lymphocytes % (A) 20 %; MCH 28.2 pg (25.0-35.0); MCHC 32.4 g/dL (31.0-37.0); Mean Platelet Volume 7.9; Monocytes # (A) 0.4 k/uL (0-1.0); Monocytes % (A) 3 %; Neutrophils # (A) 8.2 k/uL (1.3-7.7); Neutrophils % (A) 72 %; Platelet Count 174 k/uL (150-450); RBC 4.22 m/uL (3.80-5.40); RDW 14.2 % (11.5-15.5); WBC 11.3 k/uL (3.8-10.6)
--- NOTE | 2021-01-27 18:01 | P.HPOB ---
History of Present Illness H&P Date: 01/27/21 Chief Complaint: labor 25 year old presents at 39.2 in labor. Her cervix is 6/90/-1. She is alonso every 2-4 minutes. heart tones 140 with moderate variability and reactive. Review of Systems All systems: negative Constitutional: Denies chills, Denies fever Eyes: denies blurred vision, denies pain Ears, nose, mouth and throat: Denies headache, Denies sore throat Cardiovascular: Denies chest pain, Denies shortness of breath Respiratory: Denies cough Gastrointestinal: Denies abdominal pain, Denies diarrhea, Denies nausea, Denies vomiting Genitourinary: Denies dysuria, Denies hematuria Musculoskeletal: Denies myalgias Integumentary: Denies pruritus, Denies rash Neurological: Denies numbness, Denies weakness Psychiatric: Denies anxiety, Denies depression Endocrine: Denies fatigue, Denies weight change Past Medical History Past Medical History: No Reported History Additional Past Medical History / Comment(s): irregular periods History of Any Multi-Drug Resistant Organisms: None Reported Past Surgical History: No Surgical Hx Reported Additional Past Surgical History / Comment(s): D&C Past Anesthesia/Blood Transfusion Reactions: No Reported Reaction Additional Past Anesthesia/Blood Transfusion Reaction / Comment(s): pt states has never received anesthesia Smoking Status: Never smoker - Past Family History Mother Family Medical History: No Reported History Medications and Allergies Home Medications Medication Instructions Recorded Confirmed Type Pnv No.95/Ferrous Fum/Folic AC 1 each PO DAILY 01/27/21 01/27/21 History [ Multivitamin Tablet] Allergies Allergy/AdvReac Type Severity Reaction Status Date / Time No Known Allergies Allergy Verified 01/27/21 17:21 Exam Osteopathic Statement: *. No significant issues noted on an osteopathic structural exam other than those noted in the History and Physical/Consult. Intake and Output 01/27/21 01/27/21 01/27/21 06:59 14:59 22:59 Other: Weight 58.06 kg Heart: Regular rate and rhythm Lungs: Clear to auscultation bilaterally Abdomen: Soft, nontender Extremities: Negative Homans sign Results Result Diagrams: 01/27/21 17:36 Abnormal Lab Results - Last 24 Hours (Table) 01/27/21 Range/Units 17:36 WBC 11.3 H (3.8-10.6) k/uL Neutrophils # 8.2 H (1.3-7.7) k/uL Assessment and Plan (1) Normal labor Current Visit: Yes Status: Acute Code(s): O80 - ENCOUNTER FOR FULL-TERM UNCOMPLICATED DELIVERY; Z37.9 - OUTCOME OF DELIVERY, UNSPECIFIED SNOMED Code(s): 78021605 Plan: 1. admit to [facility] 2. expectant management 3. anticipate normal vaginal delivery
[2021-01-27] MEDS ORDERED: BENZOCAINE/MENTHOL SPRAY 1 GM/SPRAY AEROSOL TOPICAL PRN (18:45)
[2021-01-27] MEDS ORDERED: HYDROCORTISONE 2.5% RECTAL CREAM 30 GM TUBE RECTAL PRN (18:45)
[2021-01-27] MEDS ORDERED: SIMETHICONE 80 MG CHEWABLE PO PRN (18:45)
[2021-01-27] MEDS ORDERED: LANOLIN CREAM 5 GM TUBE TOPICAL PRN (18:45)
[2021-01-27] MEDS ORDERED: ZOLPIDEM 5 MG TAB PO PRN (18:45)
[2021-01-27] MEDS ORDERED: diphenhydrAMINE 50 MG/ML 1 ML VIAL IVP PRN ×2 (18:45)
[2021-01-27] MEDS ORDERED: diphenhydrAMINE 50 MG CAP PO PRN (18:45)
[2021-01-27] MEDS ORDERED: diphenhydrAMINE 25 MG CAP PO PRN (18:45)
[2021-01-27] MEDS ORDERED: OXYTOCIN 30 UNITS/500 ML NS 30 UNIT in SALINE 1 500ML.BAG IV SCH (18:45)
[2021-01-27] MEDS: IBUPROFEN 600 MG TAB PO SCH (19:06)
--- NOTE | 2021-01-27 21:27 | P.PROBDLV ---
Vaginal Delivery Note - . Vaginal Delivery Note: 25 year old presents at 39.2 in labor. Her cervix is 6/90/-1. She is alonso every 2-4 minutes. heart tones 140 with moderate variability and reactive. Amniotomy performed at 1748 and clear fluid noted. She was very uncomfortable but she was too far dilated to get an epidural. When she was about 9 cm dilated she started to push and then delivered a viable female infant over intact perineum at 1838. Head delivered OA, anterior shoulder delivered ge ntle downward guidance followed by posterior shoulder and rest of body. Nose and mouth bulb suctioned, cord clamped and cut, placed mother's abdomen. Apgars 9, 9, weight 7 lbs. 3 oz. Placenta delivered spontaneously, intact with three-vessel cord at 1840. Vagina, cervix, and perineum were inspected. No lacerations noted. Estimated blood loss 150 mL. Mother and baby in stable condition.
[2021-01-27] MEDS ORDERED: AMPICILLIN 1,000 MG in SODIUM CHLORIDE 0.9% 50 ML IVPB SCH (21:30)
[2021-01-27 21:44] LABS: Amphetamine Screen,Urine Not Detected (NotDetected); Barbiturate Screen,Urine Not Detected (NotDetected); Benzodiazepines Screen,Urine Not Detected (NotDetected); Cocaine Screen,Urine Not Detected (NotDetected); Methadone Screen, Urine Not Detected (NotDetected); Opiate Screen,Urine Not Detected (NotDetected); Oxycodone Screen, Urine Not Detected (NotDetected); Phencyclidine Screen,Urine Not Detected (NotDetected); Tricyclic Antidepressant,Urine Not Detected (NotDetected); Urn Cannabinoid Scrn Detected (NotDetected)
[2021-01-27] MEDS: ACETAMINOPHEN TAB 325 MG TAB PO PRN (21:51)
[2021-01-27] MEDS: SENNOSIDES-DOCUSATE SODIUM 1 EACH TAB PO SCH (21:51)
[2021-01-28] MEDS: IBUPROFEN 600 MG TAB PO SCH ×5 (02:12→19:44)
[2021-01-28] MEDS: ACETAMINOPHEN TAB 325 MG TAB PO PRN ×2 (04:39→12:43)
[2021-01-28 07:46] LABS: Basophils % (A) 0 %; Eosinophils # (A) 0.1 k/uL (0-0.7); Eosinophils % (A) 1 %; HCT 30.8 % (34.0-46.0); HGB 10.5 gm/dL (11.4-16.0); Lymphocytes # (A) 2.6 k/uL (1.0-4.8); Lymphocytes % (A) 22 %; MCH 29.1 pg (25.0-35.0); MCHC 34.2 g/dL (31.0-37.0); MCV 85.3 fL (80.0-100.0); Mean Platelet Volume 8.1; Monocytes # (A) 0.6 k/uL (0-1.0); Monocytes % (A) 6 %; Neutrophils # (A) 8.2 k/uL (1.3-7.7); Neutrophils % (A) 70 %; Platelet Count 180 k/uL (150-450); RBC 3.61 m/uL (3.80-5.40); RDW 14.1 % (11.5-15.5); WBC 11.7 k/uL (3.8-10.6)
[2021-01-28] MEDS: SENNOSIDES-DOCUSATE SODIUM 1 EACH TAB PO SCH ×2 (08:12→19:44)
[2021-01-28 09:03] VITALS: RESP 16
--- NOTE | 2021-01-28 10:05 | P.DS ---
Providers Date of admission: 01/27/21 17:24 Expected date of discharge: 01/28/21 Attending physician: Caleb Sanchez Primary care physician: Stated None - Discharge Diagnosis(es) (1) Normal labor Current Visit: Yes Status: Resolved (2) Normal vaginal delivery Current Visit: Yes Status: Acute Hospital Course: Patient presented in active labor. She underwent normal vaginal delivery. course was, uncomplicated. She denies nausea, vomiting, chest pain, shortness of breath or any calf pain. She'll be discharged home day #1 in stable condition to follow-up with Dr. Gregory in 6 weeks. Plan - Discharge Summary New Discharge Prescriptions: New Ibuprofen [Motrin] 600 mg PO Q6HR PRN #30 tab PRN Reason: Mild Pain Or Fever >= 100.5 No Action Pnv No.95/Ferrous Fum/Folic AC [ Multivitamin Tablet] 1 each PO DAILY Discharge Medication List Pnv No.95/Ferrous Fum/Folic AC [ Multivitamin Tablet] 1 each PO DAILY 01/27/21 [History] Ibuprofen [Motrin] 600 mg PO Q6HR PRN #30 tab 01/28/21 [Rx] Follow up Appointment(s)/Referral(s): Caleb Sanchez DO [Doctor of Osteopathic Medicine] - 6 Weeks Discharge Disposition: HOME SELF-CARE
[2021-01-28 19:48] LABS: Hepatitis B Surface Antigen Non-Reactive (Non-Reactive)
[2021-01-29] MEDS: IBUPROFEN 600 MG TAB PO SCH (06:44)
[2021-01-29 09:28] VITALS: BP 90/43; PULSE 52; TEMP 98.4
[2021-01-29] MEDS: SENNOSIDES-DOCUSATE SODIUM 1 EACH TAB PO SCH (12:47)
[2021-01-30 14:37] LABS: HIV 2 AB Non-Reactive (Non-Reactive); HIV AB P24 Non-Reactive (Non-Reactive); HIV P24 AG Non-Reactive (Non-Reactive)
== END 2021-01-29 12:30 | disposition home or self-care (01) | DRG 807 ==
LOC: FBPOP 17:13 → 4FBP 17:24
PROVIDERS: ADMIT Obstetrics & Gynecology; ATTEND Obstetrics & Gynecology
PROC: 10E0XZZ Delivery of Products of Conception, External Approach (ICD-10-PCS; principal; 2021-01-27)
DX: O80 Encounter for full-term uncomplicated delivery (principal); Z37.0 Single live birth; Z3A.39 39 weeks gestation of pregnancy
CPT/HCPCS: 80306; 85025; 86762; 86780; 86850; 86900; 86901; 87340; 87390; 99213

== ENCOUNTER 2021-03-05 11:26 | Emergency (ER) | payer OTHER ==
[2021-03-05 11:50] VITALS: RESP 18
--- NOTE | 2021-03-05 12:37 | ED ---
General Adult HPI - General Chief complaint: Abdominal Pain Stated complaint: Abd Pain Time Seen by Provider: 03/05/21 11:55 Source: patient Mode of arrival: ambulatory Limitations: no limitations - History of Present Illness Initial comments: Patient is a 25-year-old female presenting to the emergency Department with complaints of possible UTI. She states 4 days ago she started developing urgency, frequency and some dysuria. She states over the last 24 hours it has increased into some left side pain. She doesn't descend cramping as well and continues to have dysuria. She states she tried taking Pyridium with no improvement in her symptoms. She has not had any fevers but has felt chilled. She denies any nausea or vomiting, no vaginal complaints. She is 5 weeks post vaginal delivery, she states she has recovered well from this. She denies any vaginal bleeding or vaginal discharge, no pelvic pain. She has no chest pain or shortness of breath, no cough. She has no further complaints. - Related Data Home Medications Medication Instructions Recorded Confirmed Pnv No.95/Ferrous Fum/Folic AC 1 each PO DAILY 01/27/21 01/27/21 [ Multivitamin Tablet] Previous Rx's Medication Instructions Recorded Ibuprofen [Motrin] 600 mg PO Q6HR PRN #30 tab 01/28/21 Cephalexin [Keflex] 500 mg PO BID 7 Days #14 cap 03/05/21 Allergies Allergy/AdvReac Type Severity Reaction Status Date / Time No Known Allergies Allergy Verified 03/05/21 11:50 Review of Systems ROS Statement: Those systems with pertinent positive or pertinent negative responses have been documented in the HPI. ROS Other: All systems not noted in ROS Statement are negative. Past Medical History Past Medical History: No Reported History Additional Past Medical History / Comment(s): irregular periods History of Any Multi-Drug Resistant Organisms: None Reported Past Surgical History: No Surgical Hx Reported Additional Past Surgical History / Comment(s): D&C Past Anesthesia/Blood Transfusion Reactions: No Reported Reaction Additional Past Anesthesia/Blood Transfusion Reaction / Comment(s): pt states has never received anesthesia Past Psychological History: No Psychological Hx Reported Smoking Status: Never smoker - Past Family History Mother Family Medical History: No Reported History General Exam - General Exam Comments Initial Comments: GENERAL: Patient is well-developed and well-nourished. Patient is nontoxic and in no acute distress. HEAD: Atraumatic, normocephalic. EYES: Pupils equal round and reactive to light, extraocular movements intact, sclera anicteric, conjunctiva are normal. Eyelids were unremarkable. ENT: TMs normal, nares patent, oropharynx clear without exudates. Moist mucous membranes. NECK: Normal range of motion, supple without lymphadenopathy or JVD. LUNGS: Unlabored respirations. Breath sounds clear to auscultation bilaterally and equal. No wheezes rales or rhonchi. HEART: Regular rate and rhythm without murmurs, rubs or gallops. ABDOMEN: Soft, nontender, normoactive bowel sounds. No guarding, no rebound. No masses appreciated. : Deferred MUSCULOSKELETAL: Normal extremities with adequate strength and normal range of motion, no pitting or edema. No clubbing or cyanosis. NEUROLOGICAL: Patient is alert and oriented x 3. Motor and sensory are also intact. Cranial nerves II through XII grossly intact. Symmetrical smile. Normal speech, normal gait. PSYCH: Normal mood, normal affect. SKIN: Warm, Dry, normal turgor, no rashes or lesions noted. Limitations: no limitations Course Vital Signs 03/05/21 11:47 Temperature 97.9 F Pulse Rate 93 Respiratory 18 Rate Blood Pressure 99/69 O2 Sat by Pulse 99 Oximetry Medical Decision Making - Medical Decision Making Patient is a 25-year-old female here with dysuria, requesting urgency over the past 4 days. Her vitals are stable, no fevers. He is having some mild cramping as well. She is 5 weeks post vaginal delivery, no complications. She's been healing well. Patient's urinalysis today shows a large amount leukocyte Estrace, greater than 182 WBCs and moderate bacteria. Urine culture is pending. HCG is not detected. Patient be given 1 g of Rocephin here in the ER and started on Keflex as an outpatient. We did discuss using Pyridium and ibuprofen for discomfort. She is agreeable to this plan of care. She is stable for discharge. Return parameters were discussed with her and she verbalized understanding. Case discussed with Dr. Cummins. - Lab Data Lab Results 03/05/21 03/05/21 Range/Units 13:09 13:09 Urine Color Yellow Urine Appearance Cloudy H (Clear) Urine pH 6.0 (5.0-8.0) Ur Specific [place] 1.016 (1.001-1.035) Urine Protein 2+ H (Negative) Urine Glucose (UA) Negative (Negative) Urine Ketones Negative (Negative) Urine Blood Small H (Negative) Urine Nitrite Negative (Negative) Urine Bilirubin Negative (Negative) Urine Urobilinogen <2.0 (<2.0) mg/dL Ur Leukocyte Esterase Large H (Negative) Urine RBC 28 H (0-5) /hpf Urine WBC >182 H (0-5) /hpf Urine Bacteria Moderate H (None) /hpf Urine Mucus Occasional H (None) /hpf Urine HCG, Qual Not Detected (Not Detectd) Disposition Clinical Impression: UTI (urinary tract infection) Disposition: HOME SELF-CARE Condition: Stable Instructions (If sedation given, give patient instructions): Urinary Tract Infection in Women (ED) Additional Instructions: Please return to the Emergency Department if symptoms worsen or any other concerns. Take antibiotics as prescribed, starting this evening. Drink plenty of water and fluids. May take Pyridium/motrin for discomfort. Please follow-up with your primary care as needed. Prescriptions: Cephalexin [Keflex] 500 mg PO BID 7 Days #14 cap Is patient prescribed a controlled substance at d/c from ED?: No Referrals: None,Stated [Primary Care Provider] - 1-2 days Time of Disposition: 13:37
[2021-03-05 13:27] LABS: Appearance,Urine Cloudy (Clear); Bacteria,Urine Moderate /hpf; Bilirubin,Urine Negative (Negative); Blood,Urine Small (Negative); Color,Urine Yellow; Glucose,Urine (UA) Negative (Negative); Ketones,Urine Negative (Negative); Leukocyte Esterase,Urine Large (Negative); Mucus,Urine Occasional /hpf; Nitrite,Urine Negative (Negative); Protein,Urine 2+ (Negative); RBC,Urine 28 /hpf (0-5); Specific Gravity,Urine 1.016 (1.001-1.035); Urobilinogen,Urine <2.0 mg/dL (<2.0); WBC,Urine >182 /hpf (0-5)
[2021-03-05] MEDS ORDERED: cefTRIAXone 1,000 MG VIAL (IM USE) IM STA (13:29)
[2021-03-05] MEDS ORDERED: IBUPROFEN 600 MG TAB PO STA (13:30)
[2021-03-05 14:32] VITALS: BP 101/70; PULSE 87; TEMP 98
== END 2021-03-05 13:55 | disposition home or self-care (01) ==
LOC: EC 11:26
DX: N39.0 Urinary tract infection, site not specified (principal)
CPT/HCPCS: 99284; 96372; 81001; 81025; 87086; J0696; 87077; 87186

== ENCOUNTER 2022-07-03 09:34 | Emergency (ER) | payer OTHER ==
[2022-07-03 09:41] VITALS: TEMP 97.9
[2022-07-03] MEDS ORDERED: DIPH,PERTUS(ACELL)TETVAC-LF 0.5 ML VIAL IM ONE (09:49)
--- NOTE | 2022-07-03 09:53 | ED ---
General Adult HPI <Nain Haas - Last Filed: 07/03/22 11:00> - General Source: patient Mode of arrival: ambulatory Limitations: no limitations <Candelario Mott - Last Filed: 07/03/22 11:06> - General Chief complaint: Wound/Laceration Stated complaint: lt hand laceration Time Seen by Provider: 07/03/22 09:43 - History of Present Illness Initial comments: Dictation was produced using [employer] dictation software. please excuse any grammatical, word or spelling errors. Chief Complaint: 27-year-old female presents with left wrist laceration History of Present Illness: 27-year-old female she suffered 2 lacerations to her left upper extremity. She accidentally locked herself out of the house. Her child was locked in the house. Patient decided to break the window to gain access into the house. She suffered 2 small lacerations to the left wrist. Patient does not have up-to-date vaccinations. Denies any dysfunction with her left upper extremity. The ROS documented in this emergency department record has been reviewed and confirmed by me. Those systems with pertinent positive or negative responses have been documented in the HPI. All other systems are other negative and/or noncontributory. PHYSICAL EXAM: General Impression: Alert and oriented x3, not in acute distress HEENT: Normocephalic atraumatic, extra-ocular movements intact, pupils equal and reactive to light bilaterally, mucous membranes moist. Cardiovascular: Heart regular rate and rhythm Chest: Able to complete full sentences, no retractions, no tachypnea Musculoskeletal: no peripheral edema Left upper extremity: Superficial laceration to the base of the left first MCP. There is another laceration to the distal lateral anterior forearm both lacerations measure 1 cm Motor: no focal deficits noted Neurological: CN II-XII grossly intact, no focal motor or sensory deficits noted Skin: Intact with no visualized rashes Psych: Normal affect and mood ED course: 27-year-old female presents emergency department for upper chin lacerations. Vital signs upon arrival are within acceptable limits. Tetanus updated. Nursing notes and chart review was performed X-rays unremarkable. Laceration was repaired by nurse practitioner, Nain Haas. Patient discharged with instructions to have sutures removed in 5-7 days. (Candelario Mott) - Related Data Home Medications Medication Instructions Recorded Confirmed Pnv No.95/Ferrous Fum/Folic AC 1 each PO DAILY 01/27/21 01/27/21 [ Multivitamin Tablet] Previous Rx's Medication Instructions Recorded Ibuprofen [Motrin] 600 mg PO Q6HR PRN #30 tab 01/28/21 Cephalexin [Keflex] 500 mg PO BID 7 Days #14 cap 03/05/21 Allergies Allergy/AdvReac Type Severity Reaction Status Date / Time No Known Allergies Allergy Verified 07/03/22 09:41 Review of Systems ROS Other: All systems not noted in ROS Statement are negative. <Nain Haas - Last Filed: 07/03/22 11:00> ROS Other: All systems not noted in ROS Statement are negative. <Candelario Mott - Last Filed: 07/03/22 11:06> ROS Statement: Those systems with pertinent positive or pertinent negative responses have been documented in the HPI. Past Medical History Past Medical History: No Reported History Additional Past Medical History / Comment(s): irregular periods History of Any Multi-Drug Resistant Organisms: None Reported Past Surgical History: No Surgical Hx Reported Additional Past Surgical History / Comment(s): D&C Past Anesthesia/Blood Transfusion Reactions: No Reported Reaction Additional Past Anesthesia/Blood Transfusion Reaction / Comment(s): pt states has never received anesthesia Past Psychological History: No Psychological Hx Reported Smoking Status: Never smoker Past Alcohol Use History: None Reported Past Drug Use History: Marijuana - Past Family History Mother Family Medical History: No Reported History <Candelario Mott - Last Filed: 07/03/22 11:06> General Exam Limitations: no limitations <Candelario Mott - Last Filed: 07/03/22 11:06> Course Vital Signs 07/03/22 09:37 Temperature 97.9 F Pulse Rate 90 Respiratory 20 Rate Blood Pressure 114/70 O2 Sat by Pulse 99 Oximetry Procedures - Laceration Laceration #1 Consent Obtained: verbal consent Indication: laceration Site: hand (wrist) Size (cm): 2 Description: linear Depth: simple, single layer Anesthetic Used: lidocaine 1%, with epi Anesthesia Technique: local infiltration Pre-repair: irrigated extensively Type of Sutures: nylon Size of Sutures: 4-0 Number of Sutures: 4 Technique: simple, interrupted Patient Tolerated Procedure: well, no complications <Nain Haas Filed: 07/03/22 11:00> Disposition <Nain Haas - Last Filed: 07/03/22 11:00> Is patient prescribed a controlled substance at d/c from ED?: No Time of Disposition: 11:06 <Candelario Mott - Last Filed: 07/03/22 11:06> Clinical Impression: Laceration Disposition: HOME SELF-CARE Condition: Good Instructions (If sedation given, give patient instructions): Care For Your Stitches (DC) Additional Instructions: suture removal in 5-7 days Referrals: None,Stated [Primary Care Provider] - 1-2 days
[2022-07-03] MEDS ORDERED: LIDOCAINE 1%-EPI 1:100,000 20 ML VIAL SQ STA (09:54)
--- NOTE | 2022-07-03 10:34 | XR ---
EXAMINATION TYPE: XR wrist limited LT DATE OF EXAM: 07/03/2022 10:16 AM INDICATION: Patient age:Female; 27 years old; Reason for study: laceration; PHH. COMPARISON: None TECHNIQUE: Frontal and lateral views of the left wrist were obtained. FINDINGS: No acute osseous pathology, joint dislocation, or joint effusion. Mild soft tissue swelling of the anterior left wrist. No radiopaque foreign bodies identified. IMPRESSION: 1. No acute osseous pathology. 2. Mild soft tissue swelling of the anterior left wrist. 3. No radiopaque foreign bodies.
[2022-07-03 11:21] VITALS: BP 123/70; PULSE 85; RESP 15
== END 2022-07-03 11:21 | disposition home or self-care (01) ==
LOC: EC 09:34
DX: S61.512A Laceration without foreign body of left wrist, initial encounter (principal); F12.90 Cannabis use, unspecified, uncomplicated; Z23 Encounter for immunization; W22.8XXA Striking against or struck by other objects, initial encounter; Y92.009 Unspecified place in unspecified non-institutional (private) residence as the place of occurrence of the external cause
CPT/HCPCS: 12001; 90471; 90715; 99283